=== PATIENT | male | born 1995 | race Caucasian/White ===

== ENCOUNTER 2016-11-25 14:01 | Emergency (ER) | payer OTHER ==
--- NOTE | 2016-11-25 14:27 | ED ---
Upper Extremity HPI - General Stated Complaint: Lump on hands Time Seen by Provider: 11/25/16 14:23 Source: RN notes reviewed, old records reviewed - History of Present Illness Initial Comments: This is a 21, presented to [facility] chief complaint of cyst on bilateral hands and wrist for the past few months. 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 Patient reports that he has some pain with flexion and extension. He reports that he's noticed that they're not soft at this time they're very hard and almost calcified. Patient reports that he wants to be seen to have them removed. Patient reports that he was told that he could hit them with a book and they would disappear. Patient would like to have this done by a professional today. Patient is right-handed. Denies any numbness or tingling on the fingers. Patient denies any recent fever, chills, shortness of breath, chest pain, back pain, abdominal pain, nausea vomiting, numbness or tingling, dysuria or hematuria, constipation or diarrhea, headaches or visual changes, or any other current symptoms - Related Data Previous Rx's Medication Instructions Recorded Naproxen 500 mg PO BID #20 tablet 11/25/16 Allergies Allergy/AdvReac Type Severity Reaction Status Date / Time CITRAMALIC ACID Allergy Redness, Uncoded 11/25/16 14:26 dizzy Review of Systems ROS Statement: Those systems with pertinent positive or pertinent negative responses have been documented in the HPI. ROS Other: All systems not noted in ROS Statement are negative. Past Medical History Past Medical History: No Reported History History of Any Multi-Drug Resistant Organisms: None Reported Past Surgical History: No Surgical Hx Reported Past Psychological History: No Psychological Hx Reported Smoking Status: Current every day smoker Past Alcohol Use History: None Reported Past Drug Use History: None Reported General Exam - General Exam Comments Initial Comments: Is a 21-year-old male. No acute distress. General appearance: alert, in no apparent distress Head exam: Present: atraumatic, normocephalic, normal inspection Eye exam: Present: normal appearance, PERRL, EOMI. Absent: scleral icterus, conjunctival injection, periorbital swelling ENT exam: Present: normal exam, mucous membranes moist Neck exam: Present: normal inspection. Absent: tenderness, meningismus, lymphadenopathy Respiratory exam: Present: normal lung sounds bilaterally. Absent: respiratory distress, wheezes, rales, rhonchi, stridor Cardiovascular Exam: Present: regular rate, normal rhythm, normal heart sounds. Absent: systolic murmur, diastolic murmur, rubs, gallop, clicks GI/Abdominal exam: Present: soft, normal bowel sounds. Absent: distended, tenderness, guarding, rebound, rigid Extremities exam: Present: normal inspection, full ROM, normal capillary refill , other (Patient has evidence of what appears to be ganglion cyst over his bilateral wrists. Both of them are firm and tender to touch.). Absent: tenderness, pedal edema, joint swelling, calf tenderness Back exam: Present: normal inspection Neurological exam: Present: alert, oriented X3, CN II-XII intact Psychiatric exam: Present: normal affect, normal mood Skin exam: Present: warm, dry, intact, normal color. Absent: rash Course Vital Signs 11/25/16 14:31 Temperature 96.7 F L Pulse Rate 73 Respiratory 18 Rate Blood Pressure 127/78 O2 Sat by Pulse 99 Oximetry Medical Decision Making - Medical Decision Making his is a 21, presented to [facility] chief complaint of cyst on bilateral hands and wrist for the past few months. 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 Patient reports that he has some pain with flexion and extension. He reports that he's noticed that they're not soft at this time they're very hard and almost calcified. Patient reports that he wants to be seen to have them removed. Patient reports that he was told that he could hit them with a book and they would disappear. Patient would like to have this done by a professional today. X-rays reviewed and show no evidence of any acute process, the side bilateral carpal boxes. Patient has no tenderness over the anatomical snuffbox. No significant abnormal calcifications of the wrist. Patient will be discharged advised to follow-up with orthopedic follow-up for removal. Patient will be discharged with a temperature medication. Patient agrees treatment plan will comply. Return parameters were discussed. - Radiology Data Radiology results: report reviewed Bilateral carpal box. Correlate has to raise present the site of patient's pain. Otherwise no acute osseous abnormality seen. Disposition Clinical Impression: Bilateral ganglion cysts of wrists Disposition: HOME SELF-CARE Condition: Good Instructions: Ganglion Cysts (ED) Additional Instructions: Apply ice over area, patient advised to take antiinflammatory medication. Patient advised to follow up with orthopedic. Prescriptions: Naproxen 500 mg PO BID #20 tablet Referrals: None,Stated [Primary Care Provider] - 1-2 days Marie Del Cid MD [STAFF PHYSICIAN] - 1-2 days Landon Glez PAC [PHYSICIAN RADIOLOGY RN] - 1-2 days Time of Disposition: 15:12
[2016-11-25 14:35] VITALS: BP 127/78; PULSE 73; RESP 18; TEMP 96.7
--- NOTE | 2016-11-25 15:13 | XR ---
EXAMINATION TYPE: XR hand limited bilateral DATE OF EXAM: 11/25/2016 2:49 PM COMPARISON: NONE HISTORY: 21-year-old male with bilateral pain TECHNIQUE: 2 views each side FINDINGS: No evidence for acute fracture, subluxation, or dislocation. There is some punctate density at the ti p of the right ring finger suspected external artifact. Bilateral carpal boxes are present dorsally, seen on the lateral views. No acute fracture, subluxation, or dislocation. IMPRESSION: Bilateral carpal boss. Correlate as to if these represent the site of patient's pain. Otherwise, no a cute osseous abnormality seen.
== END 2016-11-25 15:35 | disposition home or self-care (01) ==
LOC: EC 14:01
DX: M67.432 Ganglion, left wrist (principal); M67.431 Ganglion, right wrist; F17.200 Nicotine dependence, unspecified, uncomplicated; Z88.8 Allergy status to other drugs, medicaments and biological substances
CPT/HCPCS: 99284

== ENCOUNTER 2017-02-28 10:57 | Emergency (ER) | payer OTHER ==
[2017-02-28 11:03] VITALS: BP 138/70; PULSE 74; RESP 18; TEMP 99.6
--- NOTE | 2017-02-28 11:51 | ED ---
General Adult HPI - General Chief complaint: GI Bleed Stated complaint: rectal bleeding Time Seen by Provider: 02/28/17 11:00 Source: patient, RN notes reviewed Mode of arrival: ambulatory Limitations: no limitations - History of Present Illness Initial comments: He has back pain on both sides of his spine from his neck or down to his lower back. Patient states this has been there for years because he has been moving a lot of things since she's 10 years old. Patient states she's also little blood in the stool but he doesn't really want to be worked up for that because he doesn't want a colonoscopy and he doesn't want any blood work. Patient states he is here because of back pain. Patient states he has had no direct trauma to the back. Patient denies any radicular pain. Patient denies any problems urinating or having urinary retention. Patient states he's had no recent fever chills per patient denies any history of hemorrhoids. Patient denies being lightheaded or dizzy. Patient denies any shortness of breath. - Related Data Previous Rx's Medication Instructions Recorded Cyclobenzaprine [Flexeril] 10 mg PO TID #20 tab 02/28/17 Ibuprofen [Motrin] 600 mg PO Q6HR PRN #20 tab 02/28/17 Allergies Allergy/AdvReac Type Severity Reaction Status Date / Time bee venom protein (honey bee) Allergy Anaphylaxis Verified 02/28/17 11:37 CITRAMALIC ACID Allergy Redness, Uncoded 11/25/16 14:26 dizzy Review of Systems ROS Statement: Those systems with pertinent positive or pertinent negative responses have been documented in the HPI. ROS Other: All systems not noted in ROS Statement are negative. Past Medical History Past Medical History: No Reported History History of Any Multi-Drug Resistant Organisms: None Reported Past Surgical History: No Surgical Hx Reported Past Psychological History: ADD/ADHD, Anxiety, Bipolar, Depression Smoking Status: Current every day smoker Past Alcohol Use History: None Reported Past Drug Use History: Marijuana General Exam - General Exam Comments Initial Comments: GENERAL: Patient is well-developed and well-nourished. Patient is nontoxic and well- hydrated and is in mild distress. ENT: Neck is soft and supple. No significant lymphadenopathy is noted. Oropharynx is clear. Moist mucous membranes. Neck has full range of motion without eliciting any pain. EYES: The sclera were anicteric and conjunctiva were pink and moist. Extraocular movements were intact and pupils were equal round and reactive to light. Eyelids were unremarkable. PULMONARY: Unlabored respirations. Good breath sounds bilaterally. No audible rales rhonchi or wheezing was noted. CARDIOVASCULAR: There is a regular rate and rhythm without any murmurs gallops or rubs. ABDOMEN: Soft and nontender with normal bowel sounds. No palpable organomegaly was noted. There is no palpable pulsatile mass. RECTAL: Rectal exam was normal as no obvious hemorrhoids there was no bleeding he did not let me do an internal rectal exam. SKIN: Skin is clear with no lesions or rashes and otherwise unremarkable. NEUROLOGIC: Patient is alert and oriented x3. Cranial nerves II through XII are grossly intact. Motor and sensory are also intact. Normal speech, volume and content. Symmetrical smile. MUSCULOSKELETAL: Patient has some tenderness along the paraspinous muscles of the back bilaterally straight leg test is negative. Patient has no numbness or weakness of the legs PSYCHIATRIC: Normal psychiatric evaluation. Normal interpersonal interactions appears functionally intact in deals appropriately with others. No signs of depression. No signs of anxiety. N Limitations: no limitations Course Vital Signs 02/28/17 10:59 Temperature 99.6 F Pulse Rate 74 Respiratory 18 Rate Blood Pressure 138/70 O2 Sat by Pulse 98 Oximetry Medical Decision Making - Medical Decision Making Patient did not want a digital rectal exam he refused any blood work and he refused any future colonoscopy. Patient is to follow-up with her primary medical care doctor so that he can refer him to physical therapy for his back and possibly a colonoscopy. Disposition Clinical Impression: Rectal bleeding, Back strain Disposition: HOME SELF-CARE Condition: Good Instructions: Low Back Strain (ED) Prescriptions: Cyclobenzaprine [Flexeril] 10 mg PO TID #20 tab Ibuprofen [Motrin] 600 mg PO Q6HR PRN #20 tab PRN Reason: For pain Referrals: None,Stated [Primary Care Provider] - 1-2 days
== END 2017-02-28 11:59 | disposition home or self-care (01) ==
LOC: EC 10:57
DX: S39.012A Strain of muscle, fascia and tendon of lower back, initial encounter (principal); K62.5 Hemorrhage of anus and rectum; F17.200 Nicotine dependence, unspecified, uncomplicated; Z91.030 Bee allergy status; Z91.048 Other nonmedicinal substance allergy status; X58.XXXA Exposure to other specified factors, initial encounter
CPT/HCPCS: 99284

== ENCOUNTER 2017-03-09 22:06 | Emergency (ER) | payer OTHER ==
[2017-03-09 22:15] VITALS: RESP 18
[2017-03-09 22:34] VITALS: TEMP 98.7
[2017-03-09] MEDS ORDERED: KETOROLAC 30 MG/ML 1 ML VIAL IVP ONE (22:53)
[2017-03-09] MEDS ORDERED: SODIUM CHLORIDE 0.9% 1,000 ML IV ONE (22:53)
[2017-03-09 23:32] LABS: ALT 39 U/L (21-72); AST 17 U/L (17-59); Alkaline Phosphatase 54 U/L (38-126); Anion Gap 7 mmol/L; Blood Urea Nitrogen 19 mg/dL (9-20); Calcium 9.6 mg/dL (8.4-10.2); Carbon Dioxide 30 mmol/L (22-30); Chloride 104 mmol/L (98-107); Glucose 101 mg/dL (74-99); Non-African American GFR(MDRD) >60 (>60 ml/min/1.73 sqM); Potassium 4.8 mmol/L (3.5-5.1); Sodium 141 mmol/L (137-145); Total Bilirubin 0.2 mg/dL (0.2-1.3); Total Protein 6.4 g/dL (6.3-8.2)
--- NOTE | 2017-03-09 23:34 | ED ---
General Adult HPI - General Chief complaint: Abdominal Pain Stated complaint: vomiting/congestion Time Seen by Provider: 03/09/17 22:34 Source: patient Mode of arrival: ambulatory Limitations: no limitations - History of Present Illness Initial comments: Patient is a 22-year-old male who presents to the emergency department for evaluation of generalized fatigue. Patient reports that for the past 3 days he has been experiencing runny nose and congestion, headache and pressure in his sinuses. In addition is now experiencing pressure and pain in his ears, nausea and had multiple episodes of nonbloody nonbilious emesis throughout the day today. He reports that for the past 2 days she's been able tolerate the illness but today he was unable to go to work so he decided to come to the emergency department for further evaluation. Patient denies fevers but reports subjective chills. He reports that he is always sweaty and this is unchanged recently. He denies any ringing in his ears are vision changes. He describes the headache as pressure-like surrounding his eyes and his sinuses. The patient does report a history of recurrent ear infections which began a couple of years ago. He has not been treated for an ear infection in some time. Patient denies any cough, S pain or shortness of breath. He describes his abdominal pain is a generalized cramping worse in the suprapubic region. He reports he's been drinking plenty of fluids and his urine is not darker concentrated, he denies any urinary frequency, hesitancy or dysuria. He reports normal bowel movements. He denies any rashes numbness or tingling to the extremities. - Related Data Previous Rx's Medication Instructions Recorded Amoxicillin/Potassium Clav 1 tab PO Q12HR #14 tab 03/10/17 [Augmentin 875-125 Tablet] Allergies Allergy/AdvReac Type Severity Reaction Status Date / Time bee venom protein (honey bee) Allergy Anaphylaxis Verified 03/09/17 22:49 CITRAMALIC ACID Allergy Redness, Uncoded 03/09/17 22:10 dizzy Review of Systems ROS Statement: Those systems with pertinent positive or pertinent negative responses have been documented in the HPI. ROS Other: All systems not noted in ROS Statement are negative. Constitutional: Reports: chills Eyes: Reports: eye pain. Denies: vision change ENT: Reports: ear pain, congestion. Denies: throat pain, epistaxis Respiratory: Denies: cough, dyspnea Cardiovascular: Denies: chest pain, palpitations Endocrine: Reports: fatigue Gastrointestinal: Reports: abdominal pain, nausea, vomiting Genitourinary: Denies: urgency, dysuria, frequency, hematuria Musculoskeletal: Denies: back pain Skin: Denies: rash Neurological: Reports: headache Psychiatric: Denies: anxiety Hematological/Lymphatic: Denies: easy bleeding, easy bruising Past Medical History Past Medical History: No Reported History History of Any Multi-Drug Resistant Organisms: None Reported Past Surgical History: No Surgical Hx Reported Additional Past Surgical History / Comment(s): wisdom teeth extraction Past Psychological History: ADD/ADHD, Anxiety, Bipolar, Depression Smoking Status: Current every day smoker Past Alcohol Use History: None Reported Past Drug Use History: Marijuana General Exam Limitations: no limitations General appearance: alert, in no apparent distress, other (Patient was resting comfortably in the ER bed when I entered the room) Head exam: Present: atraumatic, normocephalic, normal inspection Eye exam: Present: normal appearance, PERRL, EOMI. Absent: scleral icterus, conjunctival injection, periorbital swelling, periorbital tenderness ENT exam: Present: normal oropharynx, mucous membranes moist Expanded TM/Canal exam: Erythema: Right TM, Left TM, Bulging: Right TM, Left TM, Effusion : Right TM, Left TM Mouth exam: Present: normal external inspection Teeth exam: Present: dental caries Throat exam: tonsillar erythema. negative: tonsillomegaly, R peritonsillar mass , L peritonsillar mass Neck exam: Present: normal inspection, full ROM. Absent: lymphadenopathy Respiratory exam: Present: normal lung sounds bilaterally. Absent: respiratory distress, wheezes, rales, rhonchi, stridor Cardiovascular Exam: Present: regular rate, normal rhythm, normal heart sounds. Absent: systolic murmur, diastolic murmur, rubs, gallop, clicks GI/Abdominal exam: Present: soft, normal bowel sounds. Absent: distended, tenderness, guarding, rebound, rigid Rectal exam: Present: deferred Extremities exam: Present: normal inspection, full ROM, normal capillary refill. Absent: tenderness, pedal edema, joint swelling, calf tenderness Back exam: Present: normal inspection Neurological exam: Present: alert, oriented X3, CN II-XII intact Psychiatric exam: Present: normal affect, normal mood Skin exam: Present: warm, dry, intact, normal color. Absent: rash Course Vital Signs 03/09/17 03/09/17 03/10/17 22:10 22:33 00:04 Temperature 98.9 F 98.7 F Pulse Rate 93 89 Respiratory 18 18 Rate Blood Pressure 135/73 129/72 O2 Sat by Pulse 96 97 Oximetry - Reevaluation(s) Reevaluation #1: Patient reevaluated, sitting comfortably in the ER crescencio playing video games on his cell phone. Patient in no acute distress. 03/10/17 00:30 Medical Decision Making - Medical Decision Making Patient was seen and evaluated, history was obtained from the patient Physical exam is concerning for bilateral otitis media as well as tenderness to palpation of the bilateral maxillary sinuses - I suspect that the patient has a sinus infection Basic labs, IV fluids and Toradol was ordered Labs with mild leukocytosis. No other significant acute abnormalities Labs were discussed with the patient and at bedside. Advised that he has mild leukocytosis consistent with having an early infection. Advised I will prescribe him Augmentin for sinus infection and ear infections. Advised that he should choose an [id number] nasal spray and congestion medication for treatment of congestion to aid in resolution of sinus infection. stated that she would go to the drug store and she is medications. All questions pertaining to care were answered the best of my ability and the patient was discharged home in stable condition. - Lab Data Result diagrams: 03/09/17 23:00 03/09/17 23:00 Lab Results 03/09/17 03/09/17 03/10/17 Range/Units 23:00 23:00 00:02 WBC 10.7 H (3.8-10.6) k/uL RBC 4.88 (4.30-5.90) m/uL Hgb 14.8 (13.0-17.5) gm/dL Hct 44.5 (39.0-53.0) % MCV 91.2 (80.0-100.0) fL MCH 30.3 (25.0-35.0) pg MCHC 33.2 (31.0-37.0) g/dL RDW 13.5 (11.5-15.5) % Plt Count 271 (150-450) k/uL Neutrophils % 67 % Lymphocytes % 24 % Monocytes % 6 % Eosinophils % 2 % Basophils % 1 % Neutrophils # 7.1 (1.3-7.7) k/uL Lymphocytes # 2.6 (1.0-4.8) k/uL Monocytes # 0.6 (0-1.0) k/uL Eosinophils # 0.2 (0-0.7) k/uL Basophils # 0.1 (0-0.2) k/uL Sodium 141 (137-145) mmol/L Potassium 4.8 (3.5-5.1) mmol/L Chloride 104 (98-107) mmol/L Carbon Dioxide 30 (22-30) mmol/L Anion Gap 7 mmol/L BUN 19 (9-20) mg/dL Creatinine 1.00 (0.66-1.25) mg/dL Est GFR (MDRD) Af Amer >60 (>60 ml/min/1.73 sqM) Est GFR (MDRD) Non-Af >60 (>60 ml/min/1.73 sqM) Glucose 101 H (74-99) mg/dL Calcium 9.6 (8.4-10.2) mg/dL Total Bilirubin 0.2 (0.2-1.3) mg/dL AST 17 (17-59) U/L ALT 39 (21-72) U/L Alkaline Phosphatase 54 (38-126) U/L Total Protein 6.4 (6.3-8.2) g/dL Albumin 4.1 (3.5-5.0) g/dL Urine Color Yellow Urine Appearance Clear (Clear) Urine pH 5.5 (5.0-8.0) Ur Specific [place] 1.027 (1.001-1.035) Urine Protein Negative (Negative) Urine Glucose (UA) Negative (Negative) Urine Ketones Negative (Negative) Urine Blood Negative (Negative) Urine Nitrite Negative (Negative) Urine Bilirubin Negative (Negative) Urine Urobilinogen 2.0 (<2.0) mg/dL Ur Leukocyte Esterase Negative (Negative) Disposition Clinical Impression: Otitis media, Sinus infection Disposition: HOME SELF-CARE Condition: Good Prescriptions: Amoxicillin/Potassium Clav [Augmentin 875-125 Tablet] 1 tab PO Q12HR #14 tab Referrals: None,Stated [Primary Care Provider] - 1-2 days
[2017-03-10 00:05] VITALS: BP 129/72; PULSE 89
[2017-03-10 00:22] LABS: Appearance,Urine Clear (Clear); Bilirubin,Urine Negative (Negative); Glucose,Urine (UA) Negative (Negative); Ketones,Urine Negative (Negative); Leukocyte Esterase,Urine Negative (Negative); Nitrite,Urine Negative (Negative); PH, Urine 5.5 (5.0-8.0); Protein,Urine Negative (Negative); Specific Gravity,Urine 1.027 (1.001-1.035); UA Billing (MACRO vs. MICRO) CHEM
[2017-03-10 00:26] LABS: Basophils # (A) 0.1 k/uL (0-0.2); Basophils % (A) 1 %; CH 31.7; CHCM 34.9; Eosinophils # (A) 0.2 k/uL (0-0.7); Eosinophils % (A) 2 %; HCT 44.5 % (39.0-53.0); HDW 2.33; HGB 14.8 gm/dL (13.0-17.5); Luc # (Auto) 0.15; Luc % (Auto) 1; Lymphocytes # (A) 2.6 k/uL (1.0-4.8); Lymphocytes % (A) 24 %; MCH 30.3 pg (25.0-35.0); MCHC 33.2 g/dL (31.0-37.0); MCV 91.2 fL (80.0-100.0); Mean Platelet Volume 6.9; Monocytes # (A) 0.6 k/uL (0-1.0); Monocytes % (A) 6 %; Neutrophils # (A) 7.1 k/uL (1.3-7.7); Neutrophils % (A) 67 %; RBC 4.88 m/uL (4.30-5.90); RDW 13.5 % (11.5-15.5); WBC 10.7 k/uL (3.8-10.6); WBC (Perox) 10.21
[2017-03-10] MEDS ORDERED: AMOXIC-POT CLAV 875MG STARTER 2 EACH TABLET PO STA (00:30)
== END 2017-03-10 00:42 | disposition home or self-care (01) ==
LOC: EC 22:06
DX: H66.93 Otitis media, unspecified, bilateral (principal); J32.0 Chronic maxillary sinusitis; R11.10 Vomiting, unspecified; D72.829 Elevated white blood cell count, unspecified; F17.200 Nicotine dependence, unspecified, uncomplicated; Z91.030 Bee allergy status; Z91.09 Other allergy status, other than to drugs and biological substances
CPT/HCPCS: 36415; 80053; 85025; 81003; 99284; 96374; 96361; J1885

== ENCOUNTER 2017-03-19 03:15 | Emergency (ER) | payer OTHER ==
--- NOTE | 2017-03-19 03:41 | ED ---
General Adult HPI - General Chief complaint: Psychiatric Symptoms Stated complaint: Mental Health Time Seen by Provider: 03/19/17 03:19 Source: patient, EMS, RN notes reviewed, old records reviewed Mode of arrival: ambulatory Limitations: no limitations - History of Present Illness Initial comments: This is a 22-year-old male to the ER for evaluation. Patient doesn't by EMS for evaluation of suicide attempt. Patient told his to kill him. He wrapped a cord on his neck and told multiple - Related Data Previous Rx's Medication Instructions Recorded Amoxicillin/Potassium Clav 1 tab PO Q12HR #14 tab 03/10/17 [Augmentin 875-125 Tablet] Allergies Allergy/AdvReac Type Severity Reaction Status Date / Time bee venom protein (honey bee) Allergy Anaphylaxis Verified 03/09/17 22:49 CITRAMALIC ACID Allergy Redness, Uncoded 03/09/17 22:10 dizzy Review of Systems ROS Statement: Those systems with pertinent positive or pertinent negative responses have been documented in the HPI. ROS Other: All systems not noted in ROS Statement are negative. Past Medical History Past Medical History: No Reported History History of Any Multi-Drug Resistant Organisms: None Reported Past Surgical History: No Surgical Hx Reported Additional Past Surgical History / Comment(s): wisdom teeth extraction Past Psychological History: ADD/ADHD, Anxiety, Bipolar, Depression Smoking Status: Current every day smoker Past Alcohol Use History: Occasional Past Drug Use History: Marijuana General Exam Limitations: no limitations General appearance: alert, in no apparent distress Head exam: Present: atraumatic, normocephalic, normal inspection Eye exam: Present: normal appearance, PERRL, EOMI. Absent: scleral icterus, conjunctival injection, periorbital swelling ENT exam: Present: normal exam, mucous membranes moist Neck exam: Present: normal inspection. Absent: tenderness, meningismus, lymphadenopathy Respiratory exam: Present: normal lung sounds bilaterally. Absent: respiratory distress, wheezes, rales, rhonchi, stridor Cardiovascular Exam: Present: regular rate, normal rhythm, normal heart sounds. Absent: systolic murmur, diastolic murmur, rubs, gallop, clicks GI/Abdominal exam: Present: soft, normal bowel sounds. Absent: distended, tenderness, guarding, rebound, rigid Extremities exam: Present: normal inspection, full ROM, normal capillary refill. Absent: tenderness, pedal edema, joint swelling, calf tenderness Back exam: Present: normal inspection Neurological exam: Present: alert, oriented X3, CN II-XII intact Psychiatric exam: Present: normal affect, normal mood Skin exam: Present: warm, dry, intact, normal color. Absent: rash Course Vital Signs 03/19/17 03:32 Temperature 99.4 F Pulse Rate 101 H Respiratory 20 Rate Blood Pressure 148/86 O2 Sat by Pulse 99 Oximetry Medical Decision Making - Medical Decision Making 22 male seen and evaluated by psychiatry, patient is not actively suicidal or homicidal. Patient has safe place to go with . Patient can be discharged home Disposition Clinical Impression: Depression Disposition: HOME SELF-CARE Condition: Good Instructions: Depression (ED) Referrals: None,Stated [Primary Care Provider] - 1-2 days
[2017-03-19 06:01] VITALS: BP 131/76; PULSE 75; RESP 18; TEMP 97.5
== END 2017-03-19 06:00 | disposition home or self-care (01) ==
LOC: EC 03:15
DX: F32.9 Major depressive disorder, single episode, unspecified (principal); F41.9 Anxiety disorder, unspecified; F17.200 Nicotine dependence, unspecified, uncomplicated; Z88.8 Allergy status to other drugs, medicaments and biological substances; Z91.030 Bee allergy status
CPT/HCPCS: 82075; 99284

== ENCOUNTER 2017-04-17 12:22 | Emergency (ER) | payer OTHER ==
--- NOTE | 2017-04-17 12:57 | ED ---
General Adult HPI - General Chief complaint: Urogenital Stated complaint: Blood In Urine Time Seen by Provider: 04/17/17 12:49 Source: patient, RN notes reviewed, old records reviewed Mode of arrival: ambulatory Limitations: no limitations - History of Present Illness Initial comments: This is a 22-year-old male to the ER for evaluation of bowel pain, acute abdominal pain, dysuria. Patient denies any extraneous sexual activity. Woke up this morning again had blood in his urine. But no other complaints, no fevers. No nausea vomiting or diarrhea. - Related Data Previous Rx's Medication Instructions Recorded Doxycycline Monohydrate [Monodox] 100 mg PO Q12HR #28 cap 04/17/17 Allergies Allergy/AdvReac Type Severity Reaction Status Date / Time bee venom protein (honey bee) Allergy Anaphylaxis Verified 04/17/17 12:59 CITRAMALIC ACID Allergy Redness, Uncoded 04/17/17 12:41 dizzy Review of Systems ROS Statement: Those systems with pertinent positive or pertinent negative responses have been documented in the HPI. ROS Other: All systems not noted in ROS Statement are negative. Past Medical History Past Medical History: No Reported History History of Any Multi-Drug Resistant Organisms: None Reported Past Surgical History: No Surgical Hx Reported Additional Past Surgical History / Comment(s): wisdom teeth extraction, facial Past Psychological History: ADD/ADHD, Anxiety, Bipolar, Depression Smoking Status: Current every day smoker Past Alcohol Use History: None Reported Past Drug Use History: Marijuana General Exam Limitations: no limitations General appearance: alert, in no apparent distress Head exam: Present: atraumatic, normocephalic, normal inspection Eye exam: Present: normal appearance, PERRL, EOMI. Absent: scleral icterus, conjunctival injection, periorbital swelling ENT exam: Present: normal exam, mucous membranes moist Neck exam: Present: normal inspection. Absent: tenderness, meningismus, lymphadenopathy Respiratory exam: Present: normal lung sounds bilaterally. Absent: respiratory distress, wheezes, rales, rhonchi, stridor Cardiovascular Exam: Present: regular rate, normal rhythm, normal heart sounds. Absent: systolic murmur, diastolic murmur, rubs, gallop, clicks GI/Abdominal exam: Present: soft, normal bowel sounds. Absent: distended, tenderness, guarding, rebound, rigid Extremities exam: Present: normal inspection, full ROM, normal capillary refill. Absent: tenderness, pedal edema, joint swelling, calf tenderness Back exam: Present: normal inspection Neurological exam: Present: alert, oriented X3, CN II-XII intact Psychiatric exam: Present: normal affect, normal mood Skin exam: Present: warm, dry, intact, normal color. Absent: rash Course Vital Signs 04/17/17 12:36 Temperature 99.1 F Pulse Rate 76 Respiratory 18 Rate Blood Pressure 123/65 O2 Sat by Pulse 99 Oximetry - Reevaluation(s) Reevaluation #1: 04/17/17 14:42 patient is in no acute distress Medical Decision Making - Medical Decision Making 20 formality with hematuria. Patient has positive blood in the stool, CT negative, patient will be discharged and treated for antibiotics, await urine culture - Lab Data Lab Results 04/17/17 Range/Units 13:07 Urine Color Yellow Urine Appearance Clear (Clear) Urine pH 8.0 (5.0-8.0) Ur Specific [place] 1.013 (1.001-1.035) Urine Protein Negative (Negative) Urine Glucose (UA) Negative (Negative) Urine Ketones Negative (Negative) Urine Blood Moderate H (Negative) Urine Nitrite Negative (Negative) Urine Bilirubin Negative (Negative) Urine Urobilinogen <2.0 (<2.0) mg/dL Ur Leukocyte Esterase Negative (Negative) Urine RBC 87 H (0-5) /hpf Urine WBC 1 (0-5) /hpf Urine Mucus Rare H (None) /hpf - Radiology Data Radiology results: report reviewed (CT abdomen and pelvis, US SCROTUM NEGATIVE) , image reviewed Disposition Clinical Impression: Urinary tract infection Disposition: HOME SELF-CARE Condition: Good Instructions: Urinary Tract Infection in Men (ED) Prescriptions: Doxycycline Monohydrate [Monodox] 100 mg PO Q12HR #28 cap Referrals: Ruben Cisneros MD [Primary Care Provider] - 1-2 days
[2017-04-17 13:29] LABS: Appearance,Urine Clear (Clear); Bilirubin,Urine Negative (Negative); Glucose,Urine (UA) Negative (Negative); Ketones,Urine Negative (Negative); Leukocyte Esterase,Urine Negative (Negative); Mucus,Urine Rare /hpf; Nitrite,Urine Negative (Negative); Particle Count 2384; Protein,Urine Negative (Negative); RBC,Urine 87 /hpf (0-5); Specific Gravity,Urine 1.013 (1.001-1.035); UA Billing (MACRO vs. MICRO) MICRO; Urobilinogen,Urine <2.0 mg/dL (<2.0); WBC,Urine 1 /hpf (0-5)
--- NOTE | 2017-04-17 13:49 | CT ---
EXAMINATION TYPE: CT abdomen pelvis wo con DATE OF EXAM: 04/17/2017 COMPARISON: NONE HISTORY: Gross hematuria CT DLP: 982 mGycm Automated exposure control for dose reduction was used. TECHNIQUE: Helical acquisition of images was performed from the lung bases through the pelvis. FINDINGS: LUNG BASES: No significant abnormality is appreciated. No pleural effusion. LIVER/GB: No significant abnormality is appreciated. No evidence of cholelithiasis. No intrahepatic b iliary ductal dilatation. PANCREAS: Unenhanced morphology is unremarkable with no ductal dilatation. SPLEEN: No significant abnormality is seen. ADRENALS: Adrenal glands are symmetric without discrete nodule.. KIDNEYS: No radiopaque calculi are present. No evidence of hydronephrosis. No perinephric fat strandi ng. FREE AIR: No free air is visualized ADENOPATHY: Few enlarged left periaortic lymph nodes are seen with the largest lymph node containing a fatty eric on series 3 image 63 as well as on series 5 image 45 measuring 1.4 cm in short axis. Th anastasia are best depicted on the coronal sequence images 41 through 46. REPRODUCTIVE ORGANS: No significant abnormality is seen URINARY BLADDER: Urinary bladder esteban are circumferentially thickened which partially relates to inc omplete distention but additionally may relate to cystitis. Correlate with urinalysis. OSSEOUS STRUCTURES: No significant abnormality is seen. BOWEL: No significant abnormality is seen. IMPRESSION: 1. Circumferential urinary bladder wall thickening, partially related to incomplete distention, altho ugh correlation with urinalysis for cystitis is recommended. 2. Nonspecific periaortic adenopathy. This could be benign and reactive, however scrotal ultrasound i s recommended on a nonemergent basis to ensure no underlying mass and short-term follow-up CT is also recommended to exclude neoplastic etiologies such as early lymphoma. Correlate with CBC.
[2017-04-17] MEDS ORDERED: cefTRIAXone 250 MG VIAL IM STA (14:40)
--- NOTE | 2017-04-17 14:51 | US ---
EXAMINATION TYPE: US scrotum with doppler. Grayscale and color Doppler Duplex imaging performed of t he scrotum. DATE OF EXAM: 04/17/2017 COMPARISON: CT abdomen pelvis dated 04/17/2017 CLINICAL HISTORY: Pain. EXAM MEASUREMENTS: TESTICLES: Right Testicle: 5.5 x 2.4 x 3.2 cm Left Testicle: 5.7 x 2.2 x 3.0 cm EPIDIDYMIS HEAD: Right Epididymis: 1.5 x 1.1 cm Left Epididymis: 1.2 x 0.8 cm Doppler performed to assess for testicular vascularity; good bilateral color flow and waveforms are s een. There is no evidence of testicular torsion. Presence of hydroceles: none Presence of varicoceles: none rt epi head cyst measures 1.1 x 0.7 cm, otherwise normal exam. IMPRESSION: No intratesticular or extratesticular scrotal mass. Benign right epididymal cyst.
[2017-04-17 15:18] VITALS: BP 128/80; PULSE 70; RESP 20; TEMP 98
== END 2017-04-17 15:18 | disposition home or self-care (01) ==
LOC: EC 12:22
DX: N39.0 Urinary tract infection, site not specified (principal); R10.9 Unspecified abdominal pain; F17.200 Nicotine dependence, unspecified, uncomplicated; Z91.030 Bee allergy status; Z91.09 Other allergy status, other than to drugs and biological substances
CPT/HCPCS: 99284 ×2; 96372 ×2; 81001; 87491; 87591; 87086; 93975; 76870; 74176; J0696

== ENCOUNTER 2020-12-05 09:56 | Emergency (ER) | payer OTHER ==
[2020-12-05] MEDS ORDERED: SODIUM CHLORIDE 0.9% 1,000 ML IV ONE (10:08)
[2020-12-05] MEDS ORDERED: levETIRAcetam IV 1,000 MG in SALINE 1 100ML.BAG IVPB STA (10:09)
[2020-12-05] MEDS ORDERED: ONDANSETRON 4 MG/2 ML VIAL IM STA (10:30)
--- NOTE | 2020-12-05 10:38 | ED ---
General Adult HPI - General Chief complaint: Seizure Stated complaint: seizure Time Seen by Provider: 12/05/20 09:56 Source: patient, police, EMS, RN notes reviewed, old records reviewed Mode of arrival: EMS Limitations: no limitations - History of Present Illness Initial comments: This is a 25-year-old male who presents emergency department stating that he has a history of seizures she supposed be on Keppra but does not take it because he states he can't afford it. Patient believes he had a seizure today according to the paramedics the patient was combative and alert and oriented 1 only and had to be brought in after they gave some Versed and had the police handcuffed him. Patient currently is alert and oriented 4 and is extremely nauseated this time. Patient states he is not having any pain but he feels like it's in the vomit at any moment. Patient denies headache patient denies numbness weakness. Patient denies any drug use. Patient denies any trauma. Patient denies any recent fever chills or cough - Related Data Previous Rx's Medication Instructions Recorded Doxycycline Monohydrate [Monodox] 100 mg PO Q12HR #28 cap 04/17/17 levETIRAcetam [Keppra] 500 mg PO Q12HR #30 tab 12/05/20 Allergies Allergy/AdvReac Type Severity Reaction Status Date / Time bee venom protein (honey bee) Allergy Anaphylaxis Verified 12/05/20 10:08 CITRAMALIC ACID Allergy Redness, Uncoded 12/05/20 10:08 dizzy Review of Systems ROS Statement: Those systems with pertinent positive or pertinent negative responses have been documented in the HPI. ROS Other: All systems not noted in ROS Statement are negative. Past Medical History Past Medical History: Seizure Disorder History of Any Multi-Drug Resistant Organisms: None Reported Past Surgical History: No Surgical Hx Reported Additional Past Surgical History / Comment(s): wisdom teeth extraction, facial Past Psychological History: ADD/ADHD, Anxiety, Bipolar, Depression Smoking Status: Current some day smoker Past Alcohol Use History: None Reported Past Drug Use History: Marijuana General Exam - General Exam Comments Initial Comments: GENERAL: Patient is well-developed and well-nourished. Patient is nontoxic and well- hydrated and is in mild distress. ENT: Neck is soft and supple. No significant lymphadenopathy is noted. Oropharynx is clear. Moist mucous membranes. Neck has full range of motion without eliciting any pain. EYES: The sclera were anicteric and conjunctiva were pink and moist. Extraocular movements were intact and pupils were equal round and reactive to light. Eyelids were unremarkable. PULMONARY: Unlabored respirations. Good breath sounds bilaterally. No audible rales rhonchi or wheezing was noted. CARDIOVASCULAR: There is a regular rate and rhythm without any murmurs gallops or rubs. ABDOMEN: Soft and nontender with normal bowel sounds. SKIN: Skin is clear with no lesions or rashes and otherwise unremarkable. NEUROLOGIC: Patient is alert and oriented x3. Cranial nerves II through XII are grossly intact. Motor and sensory are also intact. Normal speech, volume and content. Symmetrical smile. MUSCULOSKELETAL: Normal extremities with adequate strength and full range of motion. No lower e xtremity swelling or edema. No calf tenderness. LYMPHATICS: No significant lymphadenopathy is noted PSYCHIATRIC: Normal psychiatric evaluation. Limitations: no limitations Course Vital Signs 12/05/20 12/05/20 10:02 12:00 Temperature 98.0 F Pulse Rate 98 85 Respiratory 18 18 Rate Blood Pressure 142/77 135/88 O2 Sat by Pulse 99 99 Oximetry Medical Decision Making - Medical Decision Making Patient received heparin the emergency department be sent home with a prescription. Patient feels at his baseline currently like to be discharged home. - Lab Data Result diagrams: 12/05/20 11:03 12/05/20 11:03 Lab Results 12/05/20 12/05/20 12/05/20 Range/Units 11:03 11:03 11:03 WBC 10.4 (3.8-10.6) k/uL RBC 5.22 (4.30-5.90) m/uL Hgb 15.0 (13.0-17.5) gm/dL Hct 45.6 (39.0-53.0) % MCV 87.3 (80.0-100.0) fL MCH 28.6 (25.0-35.0) pg MCHC 32.8 (31.0-37.0) g/dL RDW 13.3 (11.5-15.5) % Plt Count 264 (150-450) k/uL MPV 6.6 Neutrophils % 85 % Lymphocytes % 11 % Monocytes % 3 % Eosinophils % 0 % Basophils % 0 % Neutrophils # 8.8 H (1.3-7.7) k/uL Lymphocytes # 1.2 (1.0-4.8) k/uL Monocytes # 0.3 (0-1.0) k/uL Eosinophils # 0.0 (0-0.7) k/uL Basophils # 0.0 (0-0.2) k/uL Sodium 140 (137-145) mmol/L Potassium 4.5 (3.5-5.1) mmol/L Chloride 110 H (98-107) mmol/L Carbon Dioxide 24 (22-30) mmol/L Anion Gap 6 mmol/L BUN 19 (9-20) mg/dL Creatinine 0.91 (0.66-1.25) mg/dL Est GFR (CKD-EPI)AfAm >90 (>60 ml/min/1.73 sqM) Est GFR (CKD-EPI)NonAf >90 (>60 ml/min/1.73 sqM) Glucose 117 H (74-99) mg/dL Calcium 9.1 (8.4-10.2) mg/dL Total Bilirubin 0.4 (0.2-1.3) mg/dL AST 35 (17-59) U/L ALT 48 (4-49) U/L Alkaline Phosphatase 61 (38-126) U/L Total Protein 6.7 (6.3-8.2) g/dL Albumin 4.6 (3.5-5.0) g/dL Urine Opiates Screen Not Detected (NotDetected) Ur Oxycodone Screen Not Detected (NotDetected) Urine Methadone Screen Not Detected (NotDetected) Ur Propoxyphene Screen Not Detected (NotDetected) Ur Barbiturates Screen Not Detected (NotDetected) U Tricyclic Antidepress Not Detected (NotDetected) Ur Phencyclidine Scrn Not Detected (NotDetected) Ur Amphetamines Screen Not Detected (NotDetected) U Methamphetamines Scrn Not Detected (NotDetected) U Benzodiazepines Scrn Not Detected (NotDetected) Urine Cocaine Screen Not Detected (NotDetected) U Marijuana (THC) Screen Detected H (NotDetected) Disposition Clinical Impression: Generalized seizure Disposition: HOME SELF-CARE Instructions (If sedation given, give patient instructions): Seizure/Epilepsy Discharge Instructions & Follow-Up Prescriptions: levETIRAcetam [Keppra] 500 mg PO Q12HR #30 tab Is patient prescribed a controlled substance at d/c from ED?: No Referrals: Ruben Cisneros MD [Primary Care Provider] - 1-2 days Time of Disposition: 12:09
[2020-12-05 11:00] VITALS: RESP 18; TEMP 98
[2020-12-05 11:26] LABS: Basophils % (A) 0 %; Eosinophils % (A) 0 %; HCT 45.6 % (39.0-53.0); Lymphocytes # (A) 1.2 k/uL (1.0-4.8); Lymphocytes % (A) 11 %; MCH 28.6 pg (25.0-35.0); MCHC 32.8 g/dL (31.0-37.0); MCV 87.3 fL (80.0-100.0); Mean Platelet Volume 6.6; Monocytes # (A) 0.3 k/uL (0-1.0); Monocytes % (A) 3 %; Neutrophils # (A) 8.8 k/uL (1.3-7.7); Neutrophils % (A) 85 %; Platelet Count 264 k/uL (150-450); RBC 5.22 m/uL (4.30-5.90); RDW 13.3 % (11.5-15.5); WBC 10.4 k/uL (3.8-10.6)
[2020-12-05 11:31] LABS: Potassium 4.5 mmol/L (3.5-5.1)
[2020-12-05 11:34] LABS: ALT 48 U/L (4-49); AST 35 U/L (17-59); African American GFR (CKD) >90 (>60 ml/min/1.73 sqM); Albumin 4.6 g/dL (3.5-5.0); Alkaline Phosphatase 61 U/L (38-126); Anion Gap 6 mmol/L; Blood Urea Nitrogen 19 mg/dL (9-20); Calcium 9.1 mg/dL (8.4-10.2); Carbon Dioxide 24 mmol/L (22-30); Chloride 110 mmol/L (98-107); Glucose 117 mg/dL (74-99); Non-African American GFR(CKD) >90 (>60 ml/min/1.73 sqM); Sodium 140 mmol/L (137-145); Total Bilirubin 0.4 mg/dL (0.2-1.3); Total Protein 6.7 g/dL (6.3-8.2)
[2020-12-05 12:00] LABS: Amphetamine Screen,Urine Not Detected (NotDetected); Barbiturate Screen,Urine Not Detected (NotDetected); Benzodiazepines Screen,Urine Not Detected (NotDetected); Cocaine Screen,Urine Not Detected (NotDetected); Methadone Screen, Urine Not Detected (NotDetected); Opiate Screen,Urine Not Detected (NotDetected); Oxycodone Screen, Urine Not Detected (NotDetected); Phencyclidine Screen,Urine Not Detected (NotDetected); Tricyclic Antidepressant,Urine Not Detected (NotDetected); Urn Cannabinoid Scrn Detected (NotDetected)
[2020-12-05 12:01] VITALS: BP 135/88; PULSE 85
== END 2020-12-05 12:47 | disposition home or self-care (01) ==
LOC: EC 09:56
DX: G40.909 Epilepsy, unspecified, not intractable, without status epilepticus (principal); F17.200 Nicotine dependence, unspecified, uncomplicated; Z91.030 Bee allergy status; Z88.8 Allergy status to other drugs, medicaments and biological substances
CPT/HCPCS: 99284; 96374; 96372; 96361; 36415; 80053; 85025; 80306; J2405; J1953

== ENCOUNTER 2021-04-29 17:24 | Emergency (ER) | payer OTHER ==
[2021-04-29 18:09] VITALS: BP 139/90; PULSE 84; RESP 20; TEMP 98
--- NOTE | 2021-04-29 18:29 | ED ---
General Adult HPI - General Chief complaint: Psychiatric Symptoms Stated complaint: Mental Health Time Seen by Provider: 04/29/21 17:48 Source: patient, RN notes reviewed, old records reviewed Mode of arrival: ambulatory Limitations: no limitations - History of Present Illness Initial comments: 18-year-old male brought in under court order petitioned. Patient states that he had a conversation with his grandmother and he indicated some suicidal thoughts that he states was in the past. He denies current suicidal thoughts or suicidal plan. The petitioned does indicate that the patient has been evicted from his living situation. He's had some issues with seizure over the past one year and has just recently obtained medical insurance. - Related Data Home Medications Medication Instructions Recorded Confirmed No Known Home Medications 04/29/21 04/29/21 Allergies Allergy/AdvReac Type Severity Reaction Status Date / Time bee venom protein (honey bee) Allergy Anaphylaxis Verified 04/29/21 18:18 CITRAMALIC ACID Allergy Redness, Uncoded 04/29/21 17:37 dizzy Review of Systems ROS Statement: Those systems with pertinent positive or pertinent negative responses have been documented in the HPI. ROS Other: All systems not noted in ROS Statement are negative. Past Medical History Past Medical History: Seizure Disorder History of Any Multi-Drug Resistant Organisms: None Reported Past Surgical History: No Surgical Hx Reported Additional Past Surgical History / Comment(s): wisdom teeth extraction, facial Past Psychological History: ADD/ADHD, Anxiety, Bipolar, Depression Smoking Status: Current some day smoker Past Alcohol Use History: None Reported Past Drug Use History: Marijuana General Exam Limitations: no limitations General appearance: alert, in no apparent distress Head exam: Present: atraumatic, normocephalic Eye exam: Present: normal appearance, PERRL ENT exam: Present: normal exam Neck exam: Present: normal inspection. Absent: tenderness, meningismus Respiratory exam: Present: normal lung sounds bilaterally. Absent: respiratory distress, wheezes Cardiovascular Exam: Present: regular rate, normal rhythm GI/Abdominal exam: Present: soft. Absent: distended, tenderness, guarding Extremities exam: Present: normal inspection, normal capillary refill Neurological exam: Present: alert, oriented X3, CN II-XII intact. Absent: motor sensory deficit Psychiatric exam: Present: depressed, other (Disheveled, cooperative) Skin exam: Present: warm, dry, intact. Absent: cyanosis, diaphoretic Course Vital Signs 04/29/21 04/29/21 17:35 18:06 Temperature 98.2 F 98 F Pulse Rate 86 84 Respiratory 18 20 Rate Blood Pressure 182/107 139/90 O2 Sat by Pulse 97 96 Oximetry - Reevaluation(s) Reevaluation #1: 04/29/21 19:10 Patient had been cleared for EPS, awaiting disposition. Medical Decision Making - Medical Decision Making PT was evaluated by EPS and felt to be clear for discharge. Patient is forward thinking. He has signed a safety plan. He is planning to go to work tomorrow. He has outpatient resources. He is given return parameters. - Lab Data Lab Results 04/29/21 Range/Units 18:50 Urine Opiates Screen Not Detected (NotDetected) Ur Oxycodone Screen Not Detected (NotDetected) Urine Methadone Screen Not Detected (NotDetected) Ur Propoxyphene Screen Not Detected (NotDetected) Ur Barbiturates Screen Not Detected (NotDetected) U Tricyclic Antidepress Not Detected (NotDetected) Ur Phencyclidine Scrn Not Detected (NotDetected) Ur Amphetamines Screen Not Detected (NotDetected) U Methamphetamines Scrn Not Detected (NotDetected) U Benzodiazepines Scrn Not Detected (NotDetected) Urine Cocaine Screen Not Detected (NotDetected) U Marijuana (THC) Screen Detected H (NotDetected) Disposition Clinical Impression: Depression Disposition: HOME SELF-CARE Condition: Fair Instructions (If sedation given, give patient instructions): Depression (ED) Is patient prescribed a controlled substance at d/c from ED?: No Referrals: Ruben Cisneros MD [Primary Care Provider] - 1-2 days Time of Disposition: 20:28
[2021-04-29 19:27] LABS: Amphetamine Screen,Urine Not Detected (NotDetected); Barbiturate Screen,Urine Not Detected (NotDetected); Benzodiazepines Screen,Urine Not Detected (NotDetected); Cocaine Screen,Urine Not Detected (NotDetected); Methadone Screen, Urine Not Detected (NotDetected); Opiate Screen,Urine Not Detected (NotDetected); Oxycodone Screen, Urine Not Detected (NotDetected); Phencyclidine Screen,Urine Not Detected (NotDetected); Tricyclic Antidepressant,Urine Not Detected (NotDetected)
[2021-04-29 19:28] LABS: Urn Cannabinoid Scrn Detected (NotDetected)
== END 2021-04-29 20:53 | disposition home or self-care (01) ==
LOC: EC 17:24
DX: F32.9 Major depressive disorder, single episode, unspecified (principal); F17.200 Nicotine dependence, unspecified, uncomplicated; Z91.018 Allergy to other foods; Z88.8 Allergy status to other drugs, medicaments and biological substances
CPT/HCPCS: 80306; 99284

== ENCOUNTER 2021-08-11 06:19 | Emergency (ER) | payer OTHER ==
[2021-08-11 06:34] VITALS: RESP 18; TEMP 98.6
--- NOTE | 2021-08-11 06:49 | ED ---
Seizure HPI - General Chief Complaint: Seizure Stated Complaint: Seizures Time Seen by Provider: 08/11/21 06:38 Source: patient, RN notes reviewed Mode of arrival: ambulatory Limitations: no limitations - History of Present Illness Initial Comments: 26-year-old male presents emergency from chief complaint of seizure. Patient has a long history of seizures states that he is supposed to be on Keppra but states he's having issues taking it he states that he was [id number], states that he wants to follow-up with neurologist for medications change. Patient states he is currently not taking in which she's had some seizures reported last couple days. Patient has any focal weakness of her headache patient on no new medications. Patient states that he got follow-up neurovascularly did not have insurance but currently has insurance is requesting to follow-up neurology. - Related Data Previous Rx's Medication Instructions Recorded Lacosamide [Vimpat] 100 mg PO BID #30 tablet 08/11/21 Allergies Allergy/AdvReac Type Severity Reaction Status Date / Time bee venom protein (honey bee) Allergy Anaphylaxis Verified 08/11/21 07:15 CITRAMALIC ACID Allergy Redness, Uncoded 08/11/21 07:15 dizzy Review of Systems ROS Statement: Those systems with pertinent positive or pertinent negative responses have been documented in the HPI. ROS Other: All systems not noted in ROS Statement are negative. Past Medical History Past Medical History: Seizure Disorder History of Any Multi-Drug Resistant Organisms: None Reported Past Surgical History: No Surgical Hx Reported Additional Past Surgical History / Comment(s): wisdom teeth extraction, facial Past Psychological History: ADD/ADHD, Anxiety, Bipolar, Depression Smoking Status: Never smoker Past Alcohol Use History: None Reported Past Drug Use History: Marijuana General Exam Limitations: no limitations General appearance: alert, in no apparent distress Head exam: Present: atraumatic, normocephalic, normal inspection Eye exam: Present: normal appearance, PERRL, EOMI. Absent: scleral icterus, conjunctival injection, periorbital swelling ENT exam: Present: normal exam, mucous membranes moist Neck exam: Present: normal inspection, full ROM. Absent: tenderness, meningismus, lymphadenopathy Respiratory exam: Present: normal lung sounds bilaterally. Absent: respiratory distress, wheezes, rales, rhonchi, stridor Cardiovascular Exam: Present: regular rate, normal rhythm, normal heart sounds. Absent: systolic murmur, diastolic murmur, rubs, gallop, clicks Neurological exam: Present: alert, oriented X3, CN II-XII intact, reflexes normal. Absent: motor sensory deficit Course Vital Signs 08/11/21 06:31 Temperature 98.6 F Pulse Rate 87 Respiratory 18 Rate Blood Pressure 183/81 O2 Sat by Pulse 98 Oximetry Medical Decision Making - Medical Decision Making 26-year-old presented for seizures. Patient had a history. Patient labs unremarkable follow with neurologist return parameters were discussed. - Lab Data Result diagrams: 08/11/21 07:08 08/11/21 07:08 Lab Results 08/11/21 08/11/21 08/11/21 Range/Units 07:08 07:08 07:08 WBC 7.8 (3.8-10.6) k/uL RBC 5.26 (4.30-5.90) m/uL Hgb 15.5 (13.0-17.5) gm/dL Hct 46.3 (39.0-53.0) % MCV 88.1 (80.0-100.0) fL MCH 29.5 (25.0-35.0) pg MCHC 33.5 (31.0-37.0) g/dL RDW 13.3 (11.5-15.5) % Plt Count 266 (150-450) k/uL MPV 6.6 Neutrophils % 79 % Lymphocytes % 16 % Monocytes % 3 % Eosinophils % 1 % Basophils % 0 % Neutrophils # 6.1 (1.3-7.7) k/uL Lymphocytes # 1.3 (1.0-4.8) k/uL Monocytes # 0.3 (0-1.0) k/uL Eosinophils # 0.0 (0-0.7) k/uL Basophils # 0.0 (0-0.2) k/uL Sodium 139 (137-145) mmol/L Potassium 4.3 (3.5-5.1) mmol/L Chloride 104 (98-107) mmol/L Carbon Dioxide 28 (22-30) mmol/L Anion Gap 7 mmol/L BUN 15 (9-20) mg/dL Creatinine 0.96 (0.66-1.25) mg/dL Est GFR (CKD-EPI)AfAm >90 (>60 ml/min/1.73 sqM) Est GFR (CKD-EPI)NonAf >90 (>60 ml/min/1.73 sqM) Glucose 107 H (74-99) mg/dL Calcium 9.5 (8.4-10.2) mg/dL Magnesium 2.4 H (1.6-2.3) mg/dL Total Bilirubin 0.6 (0.2-1.3) mg/dL AST 37 (17-59) U/L ALT 63 H (4-49) U/L Alkaline Phosphatase 54 (38-126) U/L Total Protein 7.3 (6.3-8.2) g/dL Albumin 4.6 (3.5-5.0) g/dL Disposition Clinical Impression: Generalized seizure Disposition: HOME SELF-CARE Condition: Stable Instructions (If sedation given, give patient instructions): Seizure/Epilepsy Discharge Instructions & Follow-Up Additional Instructions: Please return to the Emergency Department if symptoms worsen or any other concerns. Prescriptions: Lacosamide [Vimpat] 100 mg PO BID #30 tablet Is patient prescribed a controlled substance at d/c from ED?: No Referrals: Ruben Cisneros MD [Primary Care Provider] - 1-2 days Juanito Juan MD [STAFF PHYSICIAN] - 1-2 days Time of Disposition: 07:50
[2021-08-11 07:35] LABS: Basophils % (A) 0 %; Eosinophils % (A) 1 %; HCT 46.3 % (39.0-53.0); HGB 15.5 gm/dL (13.0-17.5); Lymphocytes # (A) 1.3 k/uL (1.0-4.8); Lymphocytes % (A) 16 %; MCH 29.5 pg (25.0-35.0); MCHC 33.5 g/dL (31.0-37.0); MCV 88.1 fL (80.0-100.0); Mean Platelet Volume 6.6; Monocytes # (A) 0.3 k/uL (0-1.0); Monocytes % (A) 3 %; Neutrophils # (A) 6.1 k/uL (1.3-7.7); Neutrophils % (A) 79 %; Platelet Count 266 k/uL (150-450); RBC 5.26 m/uL (4.30-5.90); RDW 13.3 % (11.5-15.5); WBC 7.8 k/uL (3.8-10.6)
[2021-08-11 07:42] LABS: ALT 63 U/L (4-49); AST 37 U/L (17-59); African American GFR (CKD) >90 (>60 ml/min/1.73 sqM); Albumin 4.6 g/dL (3.5-5.0); Alkaline Phosphatase 54 U/L (38-126); Anion Gap 7 mmol/L; Blood Urea Nitrogen 15 mg/dL (9-20); Calcium 9.5 mg/dL (8.4-10.2); Carbon Dioxide 28 mmol/L (22-30); Chloride 104 mmol/L (98-107); Glucose 107 mg/dL (74-99); Non-African American GFR(CKD) >90 (>60 ml/min/1.73 sqM); Potassium 4.3 mmol/L (3.5-5.1); Sodium 139 mmol/L (137-145); Total Bilirubin 0.6 mg/dL (0.2-1.3); Total Protein 7.3 g/dL (6.3-8.2)
[2021-08-11 08:38] VITALS: BP 138/87; PULSE 70
== END 2021-08-11 08:37 | disposition home or self-care (01) ==
LOC: EC 06:19
DX: R56.9 Unspecified convulsions (principal); Z91.030 Bee allergy status; Z88.1 Allergy status to other antibiotic agents
CPT/HCPCS: 36415; 80053; 83735; 85025; 93005; 99285

== ENCOUNTER 2022-03-05 22:43 | Inpatient (IN) | payer OTHER, MEDICAID ==
[2022-03-05 23:33] VITALS: RESP 18
[2022-03-05] MEDS ORDERED: LORazepam 0.5 MG TAB PO STA (23:53)
--- NOTE | 2022-03-06 01:33 | ED ---
General Adult HPI - General Chief complaint: Psychiatric Symptoms Stated complaint: Mental Health Time Seen by Provider: 03/05/22 23:33 Source: patient, RN notes reviewed, old records reviewed Mode of arrival: ambulatory - History of Present Illness Initial comments: Patient is a 27-year-old male with past medical history remarkable for bipolar disorder, psychiatric history, suicidal ideations, stress-induced seizures who presents emergency Department complaining of worsening suicidal ideations and stress. States he has them on a daily basis. Like to be evaluated by psych iatry. Is not on any antiepileptic medications. Denies suicidal plan. Denies attempt. Denies homicidal ideations, attempts, plans. Denies visual or auditory hallucinations. His no other acute complaints at this time. Presents for psychiatric evaluation. Patient is scared that his suicidal thoughts will become worse and he may attempt something. - Related Data Previous Rx's Medication Instructions Recorded Lacosamide [Vimpat] 100 mg PO BID #30 tablet 08/11/21 Phenytoin Sodium Extended 100 mg PO BID #30 capsule 08/11/21 [Dilantin] Allergies Allergy/AdvReac Type Severity Reaction Status Date / Time bee venom protein (honey bee) Allergy Anaphylaxis Verified 03/05/22 23:33 CITRAMALIC ACID Allergy Redness, Uncoded 03/05/22 23:33 dizzy Review of Systems ROS Statement: Those systems with pertinent positive or pertinent negative responses have been documented in the HPI. Review of Systems: CONST: Denies fever EYES: Denies blurry vision ENT: Denies nasal congestion C/V: Denies Chest pain RESP: Denies shortness of breath GI: Denies abdominal pain : Denies dysuria SKIN: Denies rash. MSK: Denies joint pain. NEURO: Denies headache PSYCH: Denies homicidal ideations/plans/attempts. Denies visual or auditory hallucinations. He endorses suicidal ideations. Denies plan or attempt. ROS Other: All systems not noted in ROS Statement are negative. Past Medical History Past Medical History: Seizure Disorder History of Any Multi-Drug Resistant Organisms: None Reported Past Surgical History: No Surgical Hx Reported Additional Past Surgical History / Comment(s): wisdom teeth extraction, facial Past Psychological History: ADD/ADHD, Anxiety, Bipolar, Depression Smoking Status: Never smoker Past Alcohol Use History: None Reported Past Drug Use History: Marijuana General Exam - General Exam Comments Initial Comments: General: Appears in no acute distress. HEAD: Normal with no signs of head trauma. EYES: PERRLA, EOMI, conjunctiva normal, no discharge. ENT: Hearing grossly intact. RESPIRATORY: Clear breath sounds bilaterally. No wheezes, rales, or rhonchi. C/V: Regular rate and rhythm. S1 and S2 auscultated, no edema, peripheral pulses 2+ and intact throughout ABD: Abd is soft, nontender, nondistended EXT: Normal range of motion, no obvious deformity SKIN: No rashes or lesions observed on exposed skin. NEURO: Alert and oriented 4. Course Vital Signs 03/05/22 23:28 Temperature 98 F Pulse Rate 78 Respiratory 18 Rate Blood Pressure 148/93 O2 Sat by Pulse 98 Oximetry Medical Decision Making - Medical Decision Making Based on the patient's presentation and physical exam, do believe he requires psychiatric evaluation. Patient was placed in green scrubs. Sitter is ordered. She said precautions placed. BAT is 0. UDS is pending. Vital signs are within normal limits. Patient is medically cleared for evaluation by psychiatry. Disposition is pending EPS evaluation. EPS evaluated the patient. They determined he needs inpatient psychiatric crite ev. Patient will be admitted in stable condition. Disposition Clinical Impression: Encounter for psychiatric assessment, Suicidal ideation Disposition: TRANSFER TO PSYCH HOSP/UNIT Condition: Stable Referrals: None,Stated [Primary Care Provider] - 1-2 days
[2022-03-06] MEDS ORDERED: ACETAMINOPHEN TAB 325 MG TAB PO PRN (04:54)
[2022-03-06] MEDS ORDERED: LORazepam 1 MG TAB PO PRN (04:54)
[2022-03-06] MEDS ORDERED: LORazepam 2 MG/ML INJ IM PRN (05:00)
[2022-03-06 05:39] LABS: Amphetamine Screen,Urine Not Detected (NotDetected); Barbiturate Screen,Urine Not Detected (NotDetected); Benzodiazepines Screen,Urine Not Detected (NotDetected); Cocaine Screen,Urine Not Detected (NotDetected); Methadone Screen, Urine Not Detected (NotDetected); Opiate Screen,Urine Not Detected (NotDetected); Oxycodone Screen, Urine Not Detected (NotDetected); Phencyclidine Screen,Urine Not Detected (NotDetected); Tricyclic Antidepressant,Urine Not Detected (NotDetected); Urn Cannabinoid Scrn Detected (NotDetected)
[2022-03-06] MEDS ORDERED: haloperidoL 5 MG TAB PO PRN (06:00)
[2022-03-06] MEDS ORDERED: HALOPERIDOL LACTATE 5 MG/ML 1 ML VIAL IM PRN (06:00)
[2022-03-06 06:23] VITALS: TEMP 97.6
[2022-03-06] MEDS ORDERED: MAG HYDROX/AL HYDROX/SIMETH 30 ML CUP PO PRN (08:00)
[2022-03-06] MEDS ORDERED: NICOTINE 14MG/24HR PATCH TRANSDERM SCH (09:00)
[2022-03-06 10:07] LABS: Basophils # (A) 0.1 k/uL (0-0.2); Basophils % (A) 1 %; Eosinophils # (A) 0.1 k/uL (0-0.7); Eosinophils % (A) 1 %; HCT 47.2 % (39.0-53.0); Lymphocytes # (A) 1.6 k/uL (1.0-4.8); Lymphocytes % (A) 19 %; MCH 28.6 pg (25.0-35.0); MCHC 31.7 g/dL (31.0-37.0); MCV 90.1 fL (80.0-100.0); Mean Platelet Volume 6.5; Monocytes # (A) 0.4 k/uL (0-1.0); Monocytes % (A) 5 %; Neutrophils # (A) 6.2 k/uL (1.3-7.7); Neutrophils % (A) 74 %; Platelet Count 277 k/uL (150-450); RBC 5.23 m/uL (4.30-5.90); RDW 12.6 % (11.5-15.5); WBC 8.4 k/uL (3.8-10.6)
[2022-03-06 10:24] LABS: ALT 25 U/L (4-49); AST 20 U/L (17-59); African American GFR (CKD) >90 (>60 ml/min/1.73 sqM); Albumin 4.5 g/dL (3.5-5.0); Alkaline Phosphatase 62 U/L (38-126); Anion Gap 9 mmol/L; Blood Urea Nitrogen 13 mg/dL (9-20); Calcium 9.3 mg/dL (8.4-10.2); Carbon Dioxide 28 mmol/L (22-30); Chloride 101 mmol/L (98-107); Glucose 87 mg/dL (74-99); Non-African American GFR(CKD) >90 (>60 ml/min/1.73 sqM); Potassium 4.7 mmol/L (3.5-5.1); Sodium 138 mmol/L (137-145); Total Bilirubin 0.5 mg/dL (0.2-1.3); Total Protein 6.7 g/dL (6.3-8.2)
--- NOTE | 2022-03-06 11:29 | P.HPMEDMHU ---
History of Present Illness H&P Date: 03/06/22 Patient is a 27 year old male who presented to the ER with complaints of worsening suicidal ideation and stress. He was subsequently admitted to the mental health unit. Patient seen and examined. He denies any recent cough, cold, fever, flu. He states he just needs help with his mental health. He states he has a history of epilepsy but not does not take any seizure medications and just smokes weed. Pertinent positives and negatives as discussed in HPI, a complete review of s ystems was performed and all other systems are negative. Vital signs reviewed General: nontoxic, no distress, appears at stated age Derm: warm, dry Head: atraumatic, normocephalic, symmetric Eyes: EOMI, no lid lag, anicteric sclera, pupils equal round reactive to light ENT: Nose and ears atraumatic, no thrush, no pharyngeal erythema Neck: No thyromegaly, no cervical lymphadenopathy, trachea midline, supple Mouth: no lip lesion, mucus membranes moist Cardiovascular: S1S2 reg, no murmur, positive posterior tibial pulse bilateral, no edema, capillary refill less than 2 seconds Lungs: clear to auscultation bilateral, no rhonchi, no rales, no wheeze, no accessory muscle use Abdominal: soft, nontender to palpation, no guarding, no appreciable organomegaly, normal bowel sounds Ext: no gross muscle atrophy, muscle strength appears equal bilaterally, no contractures Neuro: CN II-XII grossly intact, no focal neuro deficits Psych: Alert, oriented, appropriate affect Assessment/Plan: Seizure disorder -Patient is not chronically on any medications -Monitor for breakthrough seizures -Outpatient follow-up Marijuana use -Would encourage cessation. Patient is not interested at this time. Bipolar disorder -Your psych management Thank you for allowing us to participate in the care of this pleasant patient. Do not hesitate to contact us with questions. Someone can be reached from the [facility] hospitalist group all hours of the day at [phone] or via [employer]. Past Medical History Past Medical History: Seizure Disorder History of Any Multi-Drug Resistant Organisms: None Reported Past Surgical History: No Surgical Hx Reported Additional Past Surgical History / Comment(s): wisdom teeth extraction, facial Past Psychological History: ADD/ADHD, Anxiety, Bipolar, Depression Smoking Status: Never smoker Past Alcohol Use History: None Reported Past Drug Use History: Marijuana Medications and Allergies Home Medications Medication Instructions Recorded Confirmed Type Lacosamide [Vimpat] 100 mg PO BID #30 tablet 08/11/21 Rx Phenytoin Sodium Extended 100 mg PO BID #30 capsule 08/11/21 Rx [Dilantin] Allergies Allergy/AdvReac Type Severity Reaction Status Date / Time bee venom protein (honey bee) Allergy Anaphylaxis Verified 03/05/22 23:33 CITRAMALIC ACID Allergy Redness, Uncoded 03/05/22 23:33 dizzy Physical Exam Osteopathic Statement: *. No significant issues noted on an osteopathic structural exam other than those noted in the History and Physical/Consult. Vitals: Vital Signs Temp Pulse Pulse Resp BP BP Pulse Ox 03/06/22 06:08 97.6 F 73 18 131/92 98 03/05/22 23:28 98 F 78 18 148/93 98 Intake and Output 03/05/22 03/06/22 03/06/22 22:59 06:59 14:59 Other: Weight 109.2 kg Cranial Nerve Examination - Cranial Nerves Cranial Nerve II- Optic: Intact Cranial Nerve III- Oculomotor: Intact Cranial Nerve IV- Trochlear: Intact Cranial Nerve V- Trigeminal: Intact Cranial Nerve - Abducens: Intact Cranial Nerve VII- Facial: Intact Cranial Nerve VIII- Auditory: Intact Cranial Nerve IX- Glossopharyngeal: Intact Cranial Nerve X- Vagus: Intact Cranial Nerve XI- Accessory: Intact Cranial Nerve XII- Hypoglossal: Intact Results CBC & Chem 7: 03/06/22 09:31 03/06/22 09:31 Labs: Abnormal Lab Results - Last 24 Hours (Table) 03/06/22 Range/Units 00:26 U Marijuana (THC) Screen Detected H (NotDetected) Thrombosis Risk Factor Assmnt - Choose All That Apply Any of the Below Risk Factors Present?: No
[2022-03-06] MEDS ORDERED: DIVALPROEX ER 500 MG TAB.ER.24H PO SCH (21:00)
[2022-03-06] MEDS ORDERED: OLANZapine 5 MG TAB PO SCH (21:00)
[2022-03-06] MEDS ORDERED: HALOPERIDOL LACTATE 5 MG/ML 1 ML VIAL IM STA (21:00)
[2022-03-06] MEDS ORDERED: LORazepam 2 MG/ML INJ IM ONE (21:02)
--- NOTE | 2022-03-06 21:32 | P.MHFACE ---
Face to Face Restrain/Seclus - Evaluation Patient's Immediate Situation: Endangers staff safety, Violent behavior Patient's Reaction to the Intervention: Uncooperative, Angry, Hostile, Anxious, Aggressive, Combative Patient's Medical & Behavioral Condition: Awake, Alert, Anxious, Agitated, Depressed Need to Continue or Terminate Restraint or Seclusion: Continue Need to Continue or Terminate Restraint/Seclusion - Comment: Patient continues to be uncooperative and make threats to staff. Tells me to go to [facility]. Refuses vitals. Refuses to speak to staff currently. Will not agree to safety behaviors at this time. Tells me that the psychiatrist who will see him tomorrow can also go to [facility]. Face to Face Eval of Restraint Date: 03/06/22 Face to Face Eval of Restraint Time: 09:15
[2022-03-06] MEDS ORDERED: chlorproMAZINE 25 MG/ML 2 ML AMP IM ONE (21:47)
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
[2022-03-07 07:00] VITALS: BP 112/59; PULSE 80
[2022-03-07 08:16] LABS: Chol/HDL Ratio 4.82 Ratio; LDL Cholesterol,Calculated 118.4 mg/dL (0.0-131.0)
[2022-03-07] MEDS ORDERED: FLUoxetine HCL 20 MG CAP PO SCH (09:00)
--- NOTE | 2022-03-07 13:28 | P.DS ---
Providers Date of admission: 03/06/22 04:47 Expected date of discharge: 03/07/22 Attending physician: Chaim Kimble MD Consults: 03/06/22 04:54 Consult Physician Routine Consulting Provider: Patric Gomez Consult Reason/Comments: H & P for mental health admission Do you want consulting provider notified?: Yes Primary care physician: Stated None - Discharge Diagnosis(es) (1) Major depressive disorder, recurrent, severe w/o psychotic behavior Status: Acute Priority: High (2) Cluster B personality disorder Status: Acute Priority: High (3) Cannabis use disorder Status: Chronic Priority: Medium Hospital Course: Admission HPI: Patient is a 27 year old male with reported history of seizures, mood disorder, and suicidal ideations. Patient presented to the hospital on 03/05/2022 "complaining of worsening suicidal ideations and stress. States he has them on a daily basis. Like to be evaluated by psychiatry. Is not on any antiepileptic medications. Denies suicidal plan. Denies attempt. Denies homicidal ideations, attempts, plans. Denies visual or auditory hallucinations. His no other acute complaints at this time. Presents for psychiatric evaluation. Patient is scared that his suicidal thoughts will become worse and he may attempt something." On the unit patient has been restless, anxious, demanding to leave, states his anxiety is really high and the stress is causing him to have mini-seziures (no seizures activity observed). Attempts to redirect patient were not successful and he continued to make demands of staff and threatening to leave the unit. He signed a three-day letter for intent to terminate care prior to being seen by this appeals writer. He continues to be loud on the unit and demand to leave. He was given Ativan 1 mg po x 1 for severe anxiety but little benefit. On my assessment, patient was seen with male staff member in the room due to his propensity to escalate. Patient continued to make threats to leave the unit and demand to be discharged. His insight into his need for treatment and judgment are poor. His thought process is laced with thought distortions, and he appears to be utilizing maladaptive defense mechanisms. He reports a long history of depression, anxiety, and trauma starting in childhood. He avoids answering when asked if he is having suicidal thoughts currently, and derails into demands to leave the unit and the stress of being on the unit will cause him to have "grand-mal seizures". He is argumentative and antagonistic throughout the assessment. He reports a prior history of bipolar disorder and was on Abilify many years ago but this was not helpful. When asked about manic episodes in the past, he reports a history of chronic significant mood lability that varies hour to hour throughout the day, that is more consistent with personality traits, low frustration tolerance, and trauma responses, and are not characteristic of manic episodes. He does not respond well to psychoeducation and becomes increasingly angry when discussing psychotropic medications, the need for hospitalization, and that the intent to terminate care he signed has a 72-hour wait period for the psychiatrist to finalize his care (excluding Sundays and hols). He does not appear to be overtly psychotic, does not appear to be responding to internal stimuli, but does appear paranoid and claims he was lied to and people do him wrong. He admits to using marijuana. He has a history of heavy alcohol use but quit drinking about 4 years ago. He also has a history of abusing Adderall in the past but not recently. We discussed medications including Prozac, Zyprexa and Depakote which he initially agreed to take, but patient became agitated with staff when nurse was attempting to give him his night time medications. He refused his medications and continued to demand discharge, despite multiple attempts by several different staff to explain the need for continued hospitalization for st abilization. He became agitated with staff, was angry, hostile, aggressive, combative, and so he was placed in 4-point restraints (continued to fight staff, kick, hit) and was given Haldol 5 mg IM x 1 and Ativan 2 mg IM x 1 for severe agitation. On my [id number] assessment at 9:15 pm while he was in restraints, he continued to be upset, make threats, telling me to go to hell, and tells me the psychiatrist that will see him tomorrow can also go to hell. Hospital course: Upon admission to the unit patient was initially noted to be agitated when informed that he was unable to leave. He is quite oppositional. He did require restraints. The patient also signed an AMA for discharge on 03/06/2022. Upon evaluation by this provider, the patient provides a significant history of borderline personality disorder and trauma. However, the patient is vehemently denying any suicidal or homicidal ideation, intention, and/or plan. He appears to be pre-contemplative in regards to fully engaging in psychiatric care at this time despite being provided with significant education on medications and talk therapy management. The patient remains vehement that he is not a danger to himself or others. He expresses a strong desire to live for himself and for his family, in particular his children and his ex-. He reports no auditory or visual hallucinations. He denies any paranoia or other delusions. The patient is apologetic for his outburst yesterday. The patient was counseled at length on importance of medication adherence and appropriate outpatient follow-up. Furthermore, we disc ussed at length the use of appropriate coping skills and communication skills. As the patient signed an AMA form and is not presenting with imminent risk of harm to self or others, he was subsequently discharged. He was encouraged to utilize crisis numbers if necessary and to follow-up in the outpatient setting with a psychotherapist and psychiatrist. Mental status exam: General Appearance: Patient appears to be stated age is alert, pleasant, and cooperative. Patient is in no acute distress and has fair hygiene and grooming Behavior: Patient is calmly seated without any agitated behavior. Speech: Patient's speech is fluent and nonpressured. Mood/Affect: Patient reports their mood is "feeling okay", affect is congruent and euthymic. Suicidality/Homicidality: Patient denies having any suicidal or homicidal ideation intent or plan. Perceptions: Patient denies any auditory or visual hallucinations. Though content/process: There is no evidence of any delusional thought content and thought process is linear and goal-directed. Patient is future oriented Memory and concentration: AOX3, grossly intact for the purposes of this session. Can spell "WORLD" backwards correctly. Judgment and insight: Improved with guarded prognosis Impression: Major depressive disorder, recurrent, severe, without psychotic features Cluster B personality disorder Cannabis use disorder Stimulant use disorder, in remission Alcohol use disorder, in remission Plan: -Continue with discharge today as patient has improved and stabilized psychiatrically and is not currently an imminent threat to himself and/or others. Patient will remain at chronically elevated risk for harm to self and/or others due to his poor coping skills and poor ego integrity. -Continue medications: Patient will be discharged on a regimen of Prozac 20 mg daily for depression/anxiety as well as Depakote ER 500 mg by mouth at bedtime for mood stabilization and seizure disorder -Patient was counseled on the need for medication compliance and appropriate follow-up at mental health and also primary care for medical issues. Patient verbalized understanding and agreed. -Patient signed AMA - Risks, benefits, and treatment alternatives were discussed with the patient prior to his discharge. -Patient was encouraged to follow-up in outpatient setting. -The patient was counseled at length on abstaining from all substances including alcohol and marijuana. -Psychoeducation and supportive therapy provided to patient. Risks and benefits of pharmacological treatment versus the risks and benefits of nontreatment weight and discussed. Informed consent discussion held. Common side effects of psychotropics discussed such as, but not limited to headache, GI disturbance, sexual dysfunction, movement disorders, sedation, and orthostatic hypotension. Life threatening and blackbox warnings of prescribed medications also discussed. Potential risks of operating a vehicle or heavy machinery discussed with patient at length. Advised on importance of compliance and a reliable and responsible manner. Patient advised to review FDA consumer labeling of all medications prior to taking. Patient verbalized understanding of potential risks, and agrees with current treatment plan. Patient advised to medically contact physician/emergency personnel if any acute changes in condition occur. Vital Signs Temp 97.6 F 03/06/22 06:08 Pulse 80 03/06/22 21:15 Resp 18 03/06/22 21:15 BP 112/59 03/06/22 21:15 Pulse Ox 98 03/06/22 06:08 FiO2 Intake & Output 03/06/22 03/07/22 03/07/22 18:59 06:59 18:59 Weight 108.8 kg Laboratory Results WBC 8.4 k/uL (3.8-10.6) 03/06/22 09:31 RBC 5.23 m/uL (4.30-5.90) 03/06/22 09:31 Hgb 15.0 gm/dL (13.0-17.5) 03/06/22 09:31 Hct 47.2 % (39.0-53.0) 03/06/22 09:31 MCV 90.1 fL (80.0-100.0) 03/06/22 09:31 MCH 28.6 pg (25.0-35.0) 03/06/22 09:31 MCHC 31.7 g/dL (31.0-37.0) 03/06/22 09: RDW 12.6 % (11.5-15.5) 03/06/22 09:31 Plt Count 277 k/uL (150-450) 03/06/22 09:31 MPV 6.5 03/06/22 09: Neutrophils % 74 % 03/06/22 09:31 Lymphocytes % 19 % 03/06/22 09:31 Monocytes % 5 % 03/06/22 09:31 Eosinophils % 1 % 03/06/22 09: Basophils % 1 % 03/06/22 09:31 Neutrophils # 6.2 k/uL (1.3-7.7) 03/06/22 09:31 Lymphocytes # 1.6 k/uL (1.0-4.8) 03/06/22 09:31 Monocytes # 0.4 k/uL (0-1.0) 03/06/22 09:31 Eosinophils # 0.1 k/uL (0-0.7) 03/06/22 09:31 Basophils # 0.1 k/uL (0-0.2) 03/06/22 09:31 Sodium 138 mmol/L (137-145) 03/06/22 09:31 Potassium 4.7 mmol/L (3.5-5.1) 03/06/22 09:31 Chloride 101 mmol/L (98-107) 03/06/22 09: Carbon Dioxide 28 mmol/L (22-30) 03/06/22 09:31 Anion Gap 9 mmol/L 03/06/22 09:31 BUN 13 mg/dL (9-20) 03/06/22 09:31 Creatinine 0.99 mg/dL (0.66-1.25) 03/06/22 09:31 Est GFR (CKD-EPI)AfAm >90 (>60 ml/min/1.73 sqM) 03/06/22 09:31 Est GFR (CKD-EPI)NonAf >90 (>60 ml/min/1.73 sqM) 03/06/22 09: Glucose 87 mg/dL (74-99) 03/06/22 09:[address] Glu mg/dL 112 09/04/22 09:31 Hemoglobin A1c 5.5 % (0.0-6.0) 03/06/22 09:31 Calcium 9.3 mg/dL (8.4-10.2) 03/06/22 09:31 Total Bilirubin 0.5 mg/dL (0.2-1.3) 03/06/22 09:31 AST 20 U/L (17-59) 03/06/22 09:31 ALT 25 U/L (4-49) 03/06/22 09:31 Alkaline Phosphatase 62 U/L (38-126) 03/06/22 09:31 Total Protein 6.7 g/dL (6.3-8.2) 03/06/22 09:31 Albumin 4.5 g/dL (3.5-5.0) 03/06/22 09:31 Triglycerides 137.00 mg/dL (0.00-149.00) 03/06/22 09:31 Cholesterol 184.00 mg/dL (0.00-200.00) 03/06/22 09:31 LDL Cholesterol, Calc 118.4 mg/dL (0.0-131.0) 03/06/22 09:31 VLDL Cholesterol, Calc 27.40 mg/dL (5.00-40.00) 03/06/22 09:31 HDL Cholesterol 38.20 mg/dL (40.00-60.00) L 03/06/22 09:31 Cholesterol/HDL Ratio 4.82 Ratio 03/06/22 09: TSH 1.220 mIU/L (0.465-4.680) 03/06/22 09:31 Urine Opiates Screen Not Detected (NotDetected) 03/06/22 00:26 Ur Oxycodone Screen Not Detected (NotDetected) 03/06/22 00:26 Urine Methadone Screen Not Detected (NotDetected) 03/06/22 00:26 Ur Propoxyphene Screen Not Detected (NotDetected) 03/06/22 00:26 Ur Barbiturates Screen Not Detected (NotDetected) 03/06/22 00:26 U Tricyclic Antidepress Not Detected (NotDetected) 03/06/22 00:26 Ur Phencyclidine Scrn Not Detected (NotDetected) 09/04/22 00:26 Ur Amphetamines Screen Not Detected (NotDetected) 03/06/22 00:26 U Methamphetamines Scrn Not Detected (NotDetected) 03/06/22 00:26 U Benzodiazepines Scrn Not Detected (NotDetected) 03/06/22 00:26 Urine Cocaine Screen Not Detected (NotDetected) 03/06/22 00:26 U Marijuana (THC) Screen Detected (NotDetected) H 03/06/22 00:26 Coronavirus (PCR) Not Detected (Not Detectd) 03/06/22 04:03 Allergies Allergy/AdvReac Type Severity Reaction Status Date / Time bee venom protein (honey bee) Allergy Anaphylaxis Verified 03/05/22 23:33 CITRAMALIC ACID Allergy Redness, Uncoded 03/05/22 23:33 dizzy Patient Condition at Discharge: Stable Plan - Discharge Summary Discharge Rx Participant: Yes New Discharge Prescriptions: New FLUoxetine HCL [PROzac] 20 mg PO DAILY 30 Days cap Divalproex ER [Depakote ER] 500 mg PO HS 30 Days tab Continue Lacosamide [Vimpat] 100 mg PO BID #30 tablet Discontinued Phenytoin Sodium Extended [Dilantin] 100 mg PO BID #30 capsule Discharge Medication List Lacosamide [Vimpat] 100 mg PO BID #30 tablet 08/11/21 [Rx] Divalproex ER [Depakote ER] 500 mg PO HS 30 Days tab 03/07/22 [Rx] FLUoxetine HCL [PROzac] 20 mg PO DAILY 30 Days cap 03/07/22 [Rx] Follow up Appointment(s)/Referral(s): [facility] [NON-STAFF] - 1 Week Patient Instructions/Handouts: How to Stop Smoking (ED), Bipolar Disorder (DC) Activity/Diet/Wound Care/Special Instructions: Senior Mechanical Estimator to contact on Thursday 03/08 to arrange follow up appointment. Avoid the use of street drugs and alcohol. Take all prescriptions as prescribed. Whe n you are in need of refills on your medications, please contact your medical provider and/or outpatient psychiatrist to have this done. Please go to scheduled outpatient appointment for aftercare treatment. If symptoms return or become worse, call the crisis line at and/or go to the nearest emergency room for evaluation. Discharge Disposition: HOME SELF-CARE
== END 2022-03-07 12:39 | disposition home or self-care (01) | DRG 885 ==
LOC: EC 22:43 → 3MHU 03-06 04:47
PROVIDERS: ADMIT Psychiatry & Neurology Psychiatry; ATTEND Psychiatry & Neurology Psychiatry
DX: F33.3 Major depressive disorder, recurrent, severe with psychotic symptoms (principal); R45.851 Suicidal ideations; Z20.822 Contact with and (suspected) exposure to COVID-19; F10.21 Alcohol dependence, in remission; F90.9 Attention-deficit hyperactivity disorder, unspecified type; F12.10 Cannabis abuse, uncomplicated; F15.11 Other stimulant abuse, in remission; F41.9 Anxiety disorder, unspecified; F60.3 Borderline personality disorder; F60.89 Other specific personality disorders; G40.909 Epilepsy, unspecified, not intractable, without status epilepticus; Z78.1 Physical restraint status; Z91.51 Personal history of suicidal behavior; Z91.030 Bee allergy status; Z88.8 Allergy status to other drugs, medicaments and biological substances
CPT/HCPCS: 80053; 80061; 80306; 82075; 83036; 84443; 85025; 87635; 99285

== ENCOUNTER 2022-04-03 09:40 | Emergency (ER) | payer OTHER, MEDICAID ==
[2022-04-03 09:50] VITALS: RESP 18; TEMP 98.6
[2022-04-03] MEDS ORDERED: SODIUM CHLORIDE 0.9% 1,000 ML IV STA (09:54)
[2022-04-03] MEDS ORDERED: levETIRAcetam IV 1,500 MG in SALINE 1 100ML.BAG IVPB STA (09:55)
[2022-04-03] MEDS ORDERED: DIVALPROEX ER 500 MG TAB.ER.24H PO STA (10:26)
[2022-04-03] MEDS ORDERED: LACOSAMIDE 50 MG TABLET PO STA (10:26)
[2022-04-03 10:29] LABS: Basophils % (A) 1 %; Eosinophils # (A) 0.1 k/uL (0-0.7); Eosinophils % (A) 2 %; HCT 48.5 % (39.0-53.0); HGB 15.5 gm/dL (13.0-17.5); Lymphocytes # (A) 1.6 k/uL (1.0-4.8); Lymphocytes % (A) 28 %; MCV 90.6 fL (80.0-100.0); Mean Platelet Volume 7.1; Monocytes # (A) 0.2 k/uL (0-1.0); Monocytes % (A) 4 %; Neutrophils # (A) 3.6 k/uL (1.3-7.7); Neutrophils % (A) 64 %; Platelet Count 250 k/uL (150-450); RBC 5.36 m/uL (4.30-5.90); RDW 12.7 % (11.5-15.5); WBC 5.6 k/uL (3.8-10.6)
[2022-04-03 10:35] LABS: Appearance,Urine Clear (Clear); Bacteria,Urine Rare /hpf; Bilirubin,Urine Negative (Negative); Blood,Urine Trace (Negative); Color,Urine Light Yellow; Glucose,Urine (UA) Negative (Negative); Ketones,Urine Trace (Negative); Leukocyte Esterase,Urine Negative (Negative); Mucus,Urine Rare /hpf; Nitrite,Urine Negative (Negative); Protein,Urine 1+ (Negative); RBC,Urine <1 /hpf (0-5); Specific Gravity,Urine 1.014 (1.001-1.035); Urobilinogen,Urine <2.0 mg/dL (<2.0); WBC,Urine <1 /hpf (0-5)
[2022-04-03 10:38] LABS: ALT 29 U/L (4-49); AST 20 U/L (17-59); African American GFR (CKD) >90 (>60 ml/min/1.73 sqM); Albumin 4.8 g/dL (3.5-5.0); Alcohol <10 mg/dL; Alkaline Phosphatase 57 U/L (38-126); Anion Gap 15 mmol/L; Blood Urea Nitrogen 13 mg/dL (9-20); Calcium 9.2 mg/dL (8.4-10.2); Carbon Dioxide 18 mmol/L (22-30); Chloride 106 mmol/L (98-107); Glucose 119 mg/dL (74-99); Non-African American GFR(CKD) >90 (>60 ml/min/1.73 sqM); Potassium 4.6 mmol/L (3.5-5.1); Sodium 139 mmol/L (137-145); Total Bilirubin 0.3 mg/dL (0.2-1.3); Total Protein 6.9 g/dL (6.3-8.2)
[2022-04-03 10:48] LABS: Amphetamine Screen,Urine Not Detected (NotDetected); Barbiturate Screen,Urine Not Detected (NotDetected); Benzodiazepines Screen,Urine Not Detected (NotDetected); Cocaine Screen,Urine Not Detected (NotDetected); Methadone Screen, Urine Not Detected (NotDetected); Opiate Screen,Urine Not Detected (NotDetected); Oxycodone Screen, Urine Not Detected (NotDetected); Phencyclidine Screen,Urine Not Detected (NotDetected); Tricyclic Antidepressant,Urine Not Detected (NotDetected); Urn Cannabinoid Scrn Detected (NotDetected)
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
[2022-04-03 12:13] VITALS: BP 122/81; PULSE 78
== END 2022-04-03 12:14 | disposition home or self-care (01) ==
LOC: EC 09:40
DX: R56.9 Unspecified convulsions (principal); Z91.030 Bee allergy status; Z88.8 Allergy status to other drugs, medicaments and biological substances
CPT/HCPCS: 36415; 70450; 72125; 80053; 80306; 80320; 81001; 85025; 93005; 96360; 96361; 99284

== ENCOUNTER 2022-04-03 14:47 | Inpatient (IN) | payer MEDICAID, OTHER ==
[2022-04-03 15:25] VITALS: TEMP 98
[2022-04-03] MEDS ORDERED: ACETAMINOPHEN TAB 500 MG TAB PO STA (15:40)
[2022-04-03] MEDS ORDERED: LACOSAMIDE 50 MG TABLET PO STA (15:51)
[2022-04-03] MEDS ORDERED: DIVALPROEX 500 MG TABLET.DR PO STA (15:51)
[2022-04-03] MEDS ORDERED: SODIUM CHLORIDE 0.9% 1,000 ML IV STA (15:51)
[2022-04-03 16:07] LABS: Basophils % (A) 0 %; Eosinophils # (A) 0.1 k/uL (0-0.7); Eosinophils % (A) 0 %; HCT 45.6 % (39.0-53.0); Lymphocytes # (A) 0.9 k/uL (1.0-4.8); Lymphocytes % (A) 7 %; MCH 28.9 pg (25.0-35.0); MCHC 32.8 g/dL (31.0-37.0); MCV 88.2 fL (80.0-100.0); Mean Platelet Volume 7.1; Monocytes # (A) 0.5 k/uL (0-1.0); Monocytes % (A) 4 %; Neutrophils # (A) 11.8 k/uL (1.3-7.7); Neutrophils % (A) 88 %; Platelet Count 239 k/uL (150-450); RBC 5.17 m/uL (4.30-5.90); RDW 12.5 % (11.5-15.5); WBC 13.4 k/uL (3.8-10.6)
[2022-04-03 16:22] LABS: ALT 28 U/L (4-49); AST 22 U/L (17-59); African American GFR (CKD) >90 (>60 ml/min/1.73 sqM); Albumin 4.7 g/dL (3.5-5.0); Alkaline Phosphatase 56 U/L (38-126); Anion Gap 10 mmol/L; Blood Urea Nitrogen 14 mg/dL (9-20); Calcium 8.8 mg/dL (8.4-10.2); Carbon Dioxide 25 mmol/L (22-30); Chloride 105 mmol/L (98-107); Glucose 102 mg/dL (74-99); Non-African American GFR(CKD) >90 (>60 ml/min/1.73 sqM); Sodium 140 mmol/L (137-145); Total Bilirubin 0.2 mg/dL (0.2-1.3); Total Protein 6.7 g/dL (6.3-8.2)
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
[2022-04-03] MEDS ORDERED: IBUPROFEN 800 MG TAB PO STA (18:27)
[2022-04-03] MEDS: SODIUM CHLORIDE 0.9% 1,000 ML IV SCH (19:56)
[2022-04-04] MEDS: SODIUM CHLORIDE 0.9% 1,000 ML IV SCH (06:45)
[2022-04-04 08:09] VITALS: BP 130/82; PULSE 72; RESP 16
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
--- NOTE | 2022-04-05 03:02 | EEG ---
ELECTROENCEPHALOGRAM REPORT PREAMBLE: This is a 27-year-old male with seizure disorder. This study is performed to evaluate for any epileptiform activity. EEG FINDINGS: This is a 21-channel digital EEG recorded with video competent, utilizing 10/20 international system with referential and bipolar montages. Background consists of well developed, well regulated moderate voltage activity in 9 to 10 Hz alpha. Background is posterior dominant and reactive to eye opening and closing. Photic driving response was not seen. Frequent left temporal dysrhythmic theta and delta activity were seen, with sharp appearing waves involving the left mid temporal region. No electrographic seizure was recorded. Stage 2 sleep was attained with presence of some vertex waves and sleep spindles. IMPRESSION: This is an abnormal EEG due to intermittent focal slowing with sharp waves seen over the left temporal region. This is suggestive of focal cortical neural dysfunction with underlying cortical irritability and tendency for seizures. Clinical correlation is recommended. Suggest prolonged EEG for further evaluation. MMODL / IJN: [id number] /
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
== END 2022-04-04 12:15 | disposition home or self-care (01) | DRG 101 ==
LOC: EC 14:47 → 5NMEDONC 17:36
PROVIDERS: ADMIT Hospitalist; ATTEND Hospitalist
PROC: 4A10X4Z Monitoring of Central Nervous Electrical Activity, External Approach (ICD-10-PCS; principal; 2022-04-03)
DX: G40.409 Other generalized epilepsy and epileptic syndromes, not intractable, without status epilepticus (principal); Z68.32 Body mass index [BMI] 32.0-32.9, adult; F90.9 Attention-deficit hyperactivity disorder, unspecified type; Z79.899 Other long term (current) drug therapy; F41.9 Anxiety disorder, unspecified; F31.9 Bipolar disorder, unspecified; E66.9 Obesity, unspecified; D72.829 Elevated white blood cell count, unspecified; Z88.8 Allergy status to other drugs, medicaments and biological substances; Z91.030 Bee allergy status
CPT/HCPCS: 36415; 80053; 85025; 95816; 96360; 96361; 99285

== ENCOUNTER 2022-05-18 07:37 | Inpatient (IN) | payer OTHER ==
[2022-05-18] MEDS ORDERED: levETIRAcetam IV 1,500 MG in SALINE 1 100ML.BAG IVPB STA (07:43)
[2022-05-18] MEDS ORDERED: SODIUM CHLORIDE 0.9% 1,000 ML IV ONE ×2 (07:43→10:04)
--- NOTE | 2022-05-18 07:59 | ED ---
General Adult HPI - General Stated complaint: seizure Time Seen by Provider: 05/18/22 07:37 Source: EMS, RN notes reviewed, old records reviewed - History of Present Illness Initial comments: This is a 27-year-old male who presents emergency department with past medical history significant for seizures. Patient had 3 seizures this morning lasting about a minute a piece prior to EMS arrival. When EMS arrived patient was posti ctal any had a fourth seizure. EMS administered 5 of Versed IV at the time of administration the patient had already stopped seizing. Patient is on seizure medications and according to family the patient takes the medications as prescribed. No family or caregivers with the patient at this time so no further history is available - Related Data Previous Rx's Medication Instructions Recorded Lacosamide [Vimpat] 100 mg PO BID #60 tablet 04/05/22 Allergies Allergy/AdvReac Type Severity Reaction Status Date / Time bee venom protein (honey bee) Allergy Anaphylaxis Verified 05/18/22 09:16 CITRAMALIC ACID Allergy Redness, Uncoded 05/18/22 09:16 dizzy Review of Systems ROS Statement: Those systems with pertinent positive or pertinent negative responses have been documented in the HPI. ROS Other: All systems not noted in ROS Statement are negative. Past Medical History Past Medical History: Seizure Disorder History of Any Multi-Drug Resistant Organisms: None Reported Past Surgical History: No Surgical Hx Reported Additional Past Surgical History / Comment(s): wisdom teeth extraction, facial Past Psychological History: ADD/ADHD, Anxiety, Bipolar, Depression Smoking Status: Never smoker Past Alcohol Use History: None Reported Past Drug Use History: Marijuana General Exam - General Exam Comments Initial Comments: GENERAL: Patient is well-developed and well-nourished. Patient is nontoxic and well- hydrated and is in no acute distress. ENT: Neck is soft and supple. No significant lymphadenopathy is noted. Oropharynx is clear. Moist mucous membranes. Neck has full range of motion without eliciting any pain. EYES: The sclera were anicteric and conjunctiva were pink and moist. Extraocular movements were intact and pupils were equal round and reactive to light. Eyelids were unremarkable. PULMONARY: Unlabored respirations. Good breath sounds bilaterally. No audible rales rhonchi or wheezing was noted. CARDIOVASCULAR: There is a regular rate and rhythm without any murmurs gallops or rubs. ABDOMEN: Soft and nontender with normal bowel sounds. SKIN: Skin is clear with no lesions or rashes and otherwise unremarkable. NEUROLOGIC: Patient is post ictal at this time. And he also has had 5 mg of Versed. MUSCULOSKELETAL: Normal extremities with adequate strength and full range of motion. LYMPHATICS: No significant lymphadenopathy is noted PSYCHIATRIC: Normal psychiatric evaluation. Course Vital Signs 05/18/22 07:43 Temperature 97.6 F Pulse Rate 98 Respiratory 24 Rate Blood Pressure 168/88 O2 Sat by Pulse 94 L Oximetry Medical Decision Making - Medical Decision Making Family called the nurse at about 940 and indicated to the nurse that the patient has been out of this seizure medications for a week. Patient was given Keppra in the emergency department 150 mg. Patient remained post ictal but was becoming more awake. Patient's bicarb was initially 5 I had an ABG done at that time after the patient started received some fluids it increased to 17. At this point in time I felt the patient needed to be admitted since he had 4 seizures today. I spoke with [facility] stay agreed to admit the patient I admitted the patient I wrote admitting orders. I consult the neurology - Lab Data Result diagrams: 05/18/22 07:59 05/18/22 07:59 Lab Results 05/18/22 05/18/22 05/18/22 Range/Units 07:59 07:59 08:42 WBC 20.5 H (3.8-10.6) k/uL RBC 5.62 (4.30-5.90) m/uL Hgb 16.5 (13.0-17.5) gm/dL Hct 53.4 H (39.0-53.0) % MCV 95.0 D (80.0-100.0) fL MCH 29.3 (25.0-35.0) pg MCHC 30.9 L (31.0-37.0) g/dL RDW 12.8 (11.5-15.5) % Plt Count 422 (150-450) k/uL MPV 7.7 Neutrophils % (Manual) 62 % Band Neuts % (Manual) 1 % Lymphocytes % (Manual) 28 % Monocytes % (Manual) 9 % Neutrophils # (Manual) 12.90 H (1.3-7.7) k/uL Lymphocytes # (Manual) 5.74 H (1.0-4.8) k/uL Monocytes # (Manual) 1.85 H (0-1.0) k/uL Nucleated RBCs 0 (0-0) /100 WBC Manual Slide Review Performed Hypochromasia Marked Sample Site ABG pH (7.35-7.45) ABG pCO2 (35-45) mmHg ABG pO2 (83-108) mmHg ABG HCO3 (21-25) mmol/L ABG Total CO2 (19-24) mmol/L ABG O2 Saturation (94-97) % ABG Base Excess mmol/L Telly Test FiO2 % Sodium 142 (137-145) mmol/L Potassium 4.6 (3.5-5.1) mmol/L Chloride 108 H (98-107) mmol/L Carbon Dioxide <5 L* (22-30) mmol/L Anion Gap mmol/L BUN 16 (9-20) mg/dL Creatinine 1.33 H (0.66-1.25) mg/dL Est GFR (CKD-EPI)AfAm 83 (>60 ml/min/1.73 sqM) Est GFR (CKD-EPI)NonAf 72 (>60 ml/min/1.73 sqM) Glucose 247 H (74-99) mg/dL Calcium 8.7 (8.4-10.2) mg/dL Magnesium 2.6 H (1.6-2.3) mg/dL Total Bilirubin 0.4 (0.2-1.3) mg/dL AST 41 (17-59) U/L ALT 57 H (4-49) U/L Alkaline Phosphatase 70 (38-126) U/L Total Protein 7.9 (6.3-8.2) g/dL Albumin 5.5 H (3.5-5.0) g/dL Valproic Acid <10.0 ug/mL Serum Alcohol <10 mg/dL 05/18/22 Range/Units 08:45 WBC (3.8-10.6) k/uL RBC (4.30-5.90) m/uL Hgb (13.0-17.5) gm/dL Hct (39.0-53.0) % MCV (80.0-100.0) fL MCH (25.0-35.0) pg MCHC (31.0-37.0) g/dL RDW (11.5-15.5) % Plt Count (150-450) k/uL MPV Neutrophils % (Manual) % Band Neuts % (Manual) % Lymphocytes % (Manual) % Monocytes % (Manual) % Neutrophils # (Manual) (1.3-7.7) k/uL Lymphocytes # (Manual) (1.0-4.8) k/uL Monocytes # (Manual) (0-1.0) k/uL Nucleated RBCs (0-0) /100 WBC Manual Slide Review Hypochromasia Sample Site rrad ABG pH 7.28 L (7.35-7.45) ABG pCO2 36 (35-45) mmHg ABG pO2 67 L (83-108) mmHg ABG HCO3 17 L (21-25) mmol/L ABG Total CO2 18 L (19-24) mmol/L ABG O2 Saturation 91.5 L (94-97) % ABG Base Excess -9.9 mmol/L Telly Test Yes FiO2 21 % Sodium (137-145) mmol/L Potassium (3.5-5.1) mmol/L Chloride (98-107) mmol/L Carbon Dioxide (22-30) mmol/L Anion Gap mmol/L BUN (9-20) mg/dL Creatinine (0.66-1.25) mg/dL Est GFR (CKD-EPI)AfAm (>60 ml/min/1.73 sqM) Est GFR (CKD-EPI)NonAf (>60 ml/min/1.73 sqM) Glucose (74-99) mg/dL Calcium (8.4-10.2) mg/dL Magnesium (1.6-2.3) mg/dL Total Bilirubin (0.2-1.3) mg/dL AST (17-59) U/L ALT (4-49) U/L Alkaline Phosphatase (38-126) U/L Total Protein (6.3-8.2) g/dL Albumin (3.5-5.0) g/dL Valproic Acid ug/mL Serum Alcohol mg/dL Critical Care Time Critical Care Time: Yes Total Critical Care Time: 35 Disposition Clinical Impression: Status epilepticus, Noncompliance with medication regimen Disposition: ADMITTED IP TO THIS [facility] Instructions (If sedation given, give patient instructions): Seizure/Epilepsy Discharge Instructions & Follow-Up Referrals: Bernardo Lee DO [Primary Care Provider] - 1-2 days Time of Disposition: 09:44
[2022-05-18 08:11] LABS: HCT 53.4 % (39.0-53.0); HGB 16.5 gm/dL (13.0-17.5); Hypochromasia Marked; MCH 29.3 pg (25.0-35.0); MCHC 30.9 g/dL (31.0-37.0); Mean Platelet Volume 7.7; Platelet Count 422 k/uL (150-450); RBC 5.62 m/uL (4.30-5.90); RDW 12.8 % (11.5-15.5); WBC 20.5 k/uL (3.8-10.6)
[2022-05-18 08:27] LABS: AST 41 U/L (17-59); African American GFR (CKD) 83 (>60 ml/min/1.73 sqM); Albumin 5.5 g/dL (3.5-5.0); Alkaline Phosphatase 70 U/L (38-126); Blood Urea Nitrogen 16 mg/dL (9-20); Calcium 8.7 mg/dL (8.4-10.2); Chloride 108 mmol/L (98-107); Glucose 247 mg/dL (74-99); Magnesium 2.6 mg/dL (1.6-2.3); Non-African American GFR(CKD) 72 (>60 ml/min/1.73 sqM); Potassium 4.6 mmol/L (3.5-5.1); Sodium 142 mmol/L (137-145); Total Bilirubin 0.4 mg/dL (0.2-1.3); Total Protein 7.9 g/dL (6.3-8.2)
[2022-05-18 08:30] LABS: Carbon Dioxide <5 mmol/L (22-30)
[2022-05-18 08:50] LABS: ALT 57 U/L (4-49)
[2022-05-18 09:06] LABS: ABG Base Excess -9.9 mmol/L; ABG HCO3 17 mmol/L (21-25); ABG Oxygen Saturation 91.5 % (94-97); ABG PCO2 36 mmHg (35-45); ABG PH 7.28 (7.35-7.45); ABG PO2 67 mmHg (83-108); ABG TCO2 18 mmol/L (19-24); Allen Test Performed? Yes
[2022-05-18 09:15] LABS: Band Neutrophils % 1 %; Lymphocytes # (M) 5.74 k/uL (1.0-4.8); Monocytes # (M) 1.85 k/uL (0-1.0); Neutrophils % (M) 62 %; Nucleated Red Blood Cells 0 /100 WBC (0-0); Total Cells Counted 100
[2022-05-18 09:37] LABS: Valproic Acid (Depakene) <10.0 ug/mL
[2022-05-18 10:19] LABS: Amphetamine Screen,Urine Not Detected (NotDetected); Barbiturate Screen,Urine Not Detected (NotDetected); Benzodiazepines Screen,Urine Not Detected (NotDetected); Cocaine Screen,Urine Not Detected (NotDetected); Methadone Screen, Urine Not Detected (NotDetected); Opiate Screen,Urine Not Detected (NotDetected); Oxycodone Screen, Urine Not Detected (NotDetected); Phencyclidine Screen,Urine Not Detected (NotDetected); Tricyclic Antidepressant,Urine Not Detected (NotDetected); Urn Cannabinoid Scrn Detected (NotDetected)
[2022-05-18] MEDS ORDERED: ONDANSETRON 4 MG/2 ML VIAL IVP STA (11:22)
[2022-05-18] MEDS ORDERED: LORazepam 2 MG/ML INJ IV PRN (12:04)
--- NOTE | 2022-05-18 12:04 | P.EN ---
i came to see the pt twice in emergency room 5, he was not in the room as per legal administrative secretary at the [employer], he went to EEG, We will follow up with him
--- NOTE | 2022-05-18 13:17 | P.CNNES ---
History of Present Illness Consult date: 05/18/22 Requesting physician: Nick Powers Reason for Consult: Status epilepticus History of Present Illness: Patient is a 27-year-old male came to the hospital by ambulance today at 7:37 AM for recurrent seizures. Patient was seen in the EEG department. Patient has been vomiting frequently. He is also groggy, postictal, not providing much history. He states that he ran out of his seizure medication Vimpat 1 week ago. He claims that the medication was not helping either. Patient states that his seizures are stress related, as he has not seen his son for last 6 weeks. His ex-, does not let him see his children, which makes him stressed out and get seizure. He does see his daughter weekly. Patient at present admits to having headache. He could not tell me how many seizures he had since last admission on 04/04/2022. He could not tell me how many aura as he had. Patient apparently did bite his tongue with the seizures. As per EMS flow sheet when they arrived, roommate mentioned that patient had 3 seizures prior to their arrival and that the patient is believed to have fallen from a seated position to the floor where it is unknown if he struck his head. Patient was post ictal on their arrival. He was mildly combative and transferred downstairs with stair chair and noted on the stretcher. He started having another seizure, witnessed by EMS. Patient was given 5 mg of Versed IV which stopped the seizure. Patient's blood pressure was 1:30/88% 140, respiration 28 and saturation 94%. Blood sugar 160 mg/dL. Patient's blood test shows WBC 20.5 hemoglobin 16.5, platelets 422. ABG with pH 7.28, pO2 67 and pCO2 36. Sodium and potassium are normal. His carbon dioxide is <5. Renal functions are normal. AST is 41, ALT 57. Urine drug screen positive for marijuana. Blood ankle level is negative. Patient's last hemoglobin A1c 5.5 on 03/06/2022. Patient was seen by myself on 04/04/2022 when he has mentioned about having seizures for last 2-1/2 years, came with breakthrough seizure. He believes the seizures are related to the stress. He usually gets an aura consisting of tasting iron/copper along with lightheadedness. As soon as he gets this sensation, he feels need to sit down. Sometimes these aura leads to grand mal seizures. He loses awareness, loses track of what he was doing. Patient had an EEG on 04/04/2022, which was abnormal due to intermittent focal slowing with sharp waves over the left temporal region. This is suggestive of focal cortical neuronal dysfunction with underlying cortical irritability and tendency for seizures. Clinical correlation is recommended. Suggest prolonged EEG for further evaluation. Patient has previously failed Depakote dose up to 1500 mg a day, and developed anger issues with Keppra. Review of Systems ROS unobtainable: due to mental status Constitutional: Reports poor appetite, Denies chills, Denies fever Eyes: denies blurred vision, denies pain Ears, nose, mouth and throat: Reports headache, Denies sore throat Cardiovascular: Denies chest pain, Denies shortness of breath Respiratory: Denies cough Gastrointestinal: Reports coffee ground emesis, Reports nausea, Reports vomiting Musculoskeletal: Denies myalgias Integumentary: Denies pruritus, Denies rash Neurological: Reports convulsions, Reports seizures, Denies lack of coordination, Denies numbness, Denies weakness Psychiatric: Reports anxiety, Reports depression Endocrine: Denies fatigue, Denies weight change Past Medical History Past Medical History: Seizure Disorder History of Any Multi-Drug Resistant Organisms: None Reported Past Surgical History: No Surgical Hx Reported Additional Past Surgical History / Comment(s): wisdom teeth extraction, facial Past Psychological History: ADD/ADHD, Anxiety, Bipolar, Depression Smoking Status: Never smoker Past Alcohol Use History: None Reported Past Drug Use History: Marijuana Medications and Allergies Home Medications Medication Instructions Recorded Confirmed Type Lacosamide [Vimpat] 100 mg PO BID #60 tablet 04/05/22 05/18/22 Rx Allergies Allergy/AdvReac Type Severity Reaction Status Date / Time bee venom protein (honey bee) Allergy Anaphylaxis Verified 05/18/22 09:16 CITRAMALIC ACID Allergy Redness, Uncoded 05/18/22 09:16 dizzy Physical Examination - Vital Signs Vital Signs: Vital Signs Temp Pulse Resp BP Pulse Ox 05/18/22 07:43 97.6 F 98 24 168/88 94 L Intake and Output 05/17/22 05/18/22 05/18/22 22:59 06:59 14:59 Other: Weight 112.491 kg Patient is a young male, who is groggy, postictal at this time. He has been vomiting frequently. Patient is groggy, postictal. He keeps his eyes closed. Speech and language functions are normal. Patient can name and repeat very well. No aphasia or dysarthria. Attention, concentration and fund of knowledge is limited due to postictal state. On cranial nerve examination, pupils are equal, round and reacting to light, visual saini are full on confrontation, with no neglect on double simultaneous stimulation Extraocular muscles are intact with no nystagmus. Face is symmet hemal, tongue protrudes to the midline. Palatal elevation and sensation normal, hearing and shoulder shrug normal, facial sensation normal. He has evidence of tongue bite carlyn on the right side. On muscle strength testing, there is no pronator drift and the strength is normal in arms and legs distally and proximally. Deep tendon reflexes are symmetric 1+ to 2+ and plantars are withdrawal bilat erally. Sensory to touch is equal with no neglect on double simultaneous stimulation. Cerebellar function showed no ataxia for [id number] testing. No dysdiadochokinesia. Tone and bulk of muscles normal. Gait deferred.. On general examination, there is no carotid bruit or murmur, S1-S2 audible. Chest is clear on consultation. Abdomen is soft nontender. No organomegaly, bowel sounds present. Peripheral pulses are present. No edema. Results - Laboratory Findings CBC and BMP: 05/18/22 07:59 05/18/22 07:59 Abnormal Lab Findings: Abnormal Labs 05/18/22 05/18/22 05/18/22 07:59 07:59 08:42 WBC 20.5 H Hct 53.4 H MCHC 30.9 L Neutrophils # (Manual) 12.90 H Lymphocytes # (Manual) 5.74 H Monocytes # (Manual) 1.85 H ABG pH ABG pO2 ABG HCO3 ABG Total CO2 ABG O2 Saturation Chloride 108 H Carbon Dioxide <5 L* Creatinine 1.33 H Glucose 247 H Magnesium 2.6 H ALT 57 H Albumin 5.5 H U Marijuana (THC) Screen Detected H 05/18/22 08:45 WBC Hct MCHC Neutrophils # (Manual) Lymphocytes # (Manual) Monocytes # (Manual) ABG pH 7.28 L ABG pO2 67 L ABG HCO3 17 L ABG Total CO2 18 L ABG O2 Saturation 91.5 L Chloride Carbon Dioxide Creatinine Glucose Magnesium ALT Albumin U Marijuana (THC) Screen Assessment and Plan Assessment: * Seizure disorder, came with breakthrough seizures. * Medication noncompliance. Patient ran out of Vimpat 1 week ago. * Marijuana use. * Nausea vomiting, unclear etiology. Plan: * Patient has received Keppra 1 g in the ER. Will stop Keppra, as patient previously had side effects from Keppra. Resume Vimpat 100 mg twice a day. * A prolonged 2.5 hours EEG was initiated. Patient vomited 2-3 times during the EEG, and would not cooperate for prolonged testing. The routine EEG that was performed was technically limited because of a lot of movement artifact. Possible bitemporal slowing left more than right was seen. No clearcut ep ileptiform activity was seen on this very technically limited study. * MRI of the brain evaluate for cause of seizures. * Evaluation of nausea vomiting, metabolic derangement, we will defer to internal medicine. * Patient informed of [place] state law of not driving unless seizure free for 6 months, climbing ladders, operate dangerous machinery or unsupervised swimming. * Patient recommended to follow up with neurologist as an outpatient. Addendum: MRI of the brain is normal. No intracranial mass or acute/subacute infarct. I personally reviewed MRI, agree with the findings. Patient clear for discharge from neurology standpoint on Vimpat 100 mg twice a day and to follow-up with a neurologist. Dr. Geoffrey Laura will be available for any neurological concerns starting from tomorrow morning.
[2022-05-18] MEDS: LACOSAMIDE IV 100 MG in SODIUM CHLORIDE 0.9% 50 ML IVPB SCH ×2 (14:14→21:35)
[2022-05-18] MEDS ORDERED: LORazepam 1 MG/0.5 ML VIAL IV PRN (14:15)
--- NOTE | 2022-05-18 14:52 | P.HPIM ---
History of Present Illness This is a pleasant 27 years old female with past medical history of seizure disorder, bipolar and depression Patient was in the hospital last month for seizure also. He was discharge on Vimpat 100 mg twice a day. However patient presents with recurrent seizures. Patient says that he has not been taking his Vimpat for about a week. Patient says that he could not afford it. Patient could not remember what happened think she remembers that he woke up in the hospital. 5 at bedside and states that his roommate noticed that he had 3 seizure, one of them lasted more than 5 minutes during this time he had urine incontinence and bit his tongue. By the EMS came to pick him up he had a fourth seizure. Patient he has some headache but he denies any neck stiffness. No chest pain or dyspnea. No abdominal pain or nausea vomiting. No diarrhea. No fever. Patient looks looks side and with poor interaction. He says that he has history of bipolar. And he denies suicidal thoughts currently or before. However states that patient had suicidal ideation or attempt about 1.5 months ago and the thinks acid should be at bedside. Discussed with staff. Vitals stable, blood pressure 160/88. Patient is afebrile Labs showing leukocytosis with WBCs 20.5. HE was 13.4 which slightly elevated last month 10-2-22, lymphocyte and was also elevated as well as neutrophil. PH is 7.2, pCO2 normal 36 oxygen is low at 67 Dear patient with carbon dioxide less than 5, creatinine 1.3. Urine drug screen is positive for marijuana. Valproic acid less than 10. Alcohol less than 10. And emergency room received Keppra 1500 mg 1 and normal saline 75 mL/h and the neurologist consulted with EEG is requested as well. Review of Systems Review of systems CONSTITUTIONAL: No fever, no malaise, no fatigue. HEENT: No recent visual problems or hearing problems. Denied any sore throat. CARDIOVASCULAR: No orthopnea, PND, no palpitations, no syncope. PULMONARY: No shortness of breath, no cough, no hemoptysis. GASTROINTESTINAL: No diarrhea, no abdominal pain. Normoactive bowel sounds. NEUROLOGICAL: No headaches, no weakness, no numbness. HEMATOLOGICAL: Denies any bleeding or petechiae. GENITOURINARY: Denies any burning micturition, frequency, or urgency. MUSCULOSKELETAL/RHEUMATOLOGICAL: Denies any joint pain, swelling, or any muscle pain. ENDOCRINE: Denies any polyuria or polydipsia. Past Medical History Past Medical History: Seizure Disorder History of Any Multi-Drug Resistant Organisms: None Reported Past Surgical History: No Surgical Hx Reported Additional Past Surgical History / Comment(s): wisdom teeth extraction, facial Past Psychological History: ADD/ADHD, Anxiety, Bipolar, Depression Smoking Status: Never smoker Past Alcohol Use History: None Reported Past Drug Use History: Marijuana Medications and Allergies Home Medications Medication Instructions Recorded Confirmed Type Lacosamide [Vimpat] 100 mg PO BID #60 tablet 04/05/22 05/18/22 Rx Allergies Allergy/AdvReac Type Severity Reaction Status Date / Time bee venom protein (honey bee) Allergy Anaphylaxis Verified 05/18/22 09:16 CITRAMALIC ACID Allergy Redness, Uncoded 05/18/22 09:16 dizzy Physical Exam Vitals: Vital Signs Temp Pulse Resp BP Pulse Ox 05/18/22 13:26 98.7 F 85 20 131/80 99 05/18/22 07:43 97.6 F 98 24 168/88 94 L Intake and Output 05/17/22 05/18/22 05/18/22 22:59 06:59 14:59 Other: Weight 112.491 kg -GENERAL: The patient is alert and oriented x3, not in any acute distress. Well developed, well nourished. Patient looks well controlled with poor interaction -HEENT: Pupils are round and equally reacting to light. EOMI. No scleral icterus . No conjunctival pallor. Normocephalic, atraumatic. No pharyngeal erythema. No thyromegaly. tongue bite CARDIOVASCULAR: S1 and S2 present. No murmurs, rubs, or gallops. PULMONARY: Chest is clear to auscultation, no wheezing or crackles. ABDOMEN: Soft, nontender, nondistended, normoactive bowel sounds. No palpable organomegaly. MUSCULOSKELETAL: No joint swelling or deformity. EXTREMITIES: No cyanosis, clubbing, or pedal edema. NEUROLOGICAL: Gross neurological examination did not reveal any focal deficits. SKIN: No rashes. no petechiae. Results CBC & Chem 7: 05/18/22 07:59 05/18/22 07:59 Labs: Abnormal Lab Results - Last 24 Hours (Table) 05/18/22 05/18/2222 Range/Units 07:59 07:59 08:42 WBC 20.5 H (3.8-10.6) k/uL Hct 53.4 H (39.0-53.0) % MCHC 30.9 L (31.0-37.0) g/dL Neutrophils # (Manual) 12.90 H (1.3-7.7) k/uL Lymphocytes # (Manual) 5.74 H (1.0-4.8) k/uL Monocytes # (Manual) 1.85 H (0-1.0) k/uL ABG pH (7.35-7.45) ABG pO2 (83-108) mmHg ABG HCO3 (21-25) mmol/L ABG Total CO2 (19-24) mmol/L ABG O2 Saturation (94-97) % Chloride 108 H (98-107) mmol/L Carbon Dioxide <5 L* (22-30) mmol/L Creatinine 1.33 H (0.66-1.25) mg/dL Glucose 247 H (74-99) mg/dL Magnesium 2.6 H (1.6-2.3) mg/dL ALT 57 H (4-49) U/L Albumin 5.5 H (3.5-5.0) g/dL U Marijuana (THC) Screen Detected H (NotDetected) 05/18/22 Range/Units 08:45 WBC (3.8-10.6) k/uL Hct (39.0-53.0) % MCHC (31.0-37.0) g/dL Neutrophils # (Manual) (1.3-7.7) k/uL Lymphocytes # (Manual) (1.0-4.8) k/uL Monocytes # (Manual) (0-1.0) k/uL ABG pH 7.28 L (7.35-7.45) ABG pO2 67 L (83-108) mmHg ABG HCO3 17 L (21-25) mmol/L ABG Total CO2 18 L (19-24) mmol/L ABG O2 Saturation 91.5 L (94-97) % Chloride (98-107) mmol/L Carbon Dioxide (22-30) mmol/L Creatinine (0.66-1.25) mg/dL Glucose (74-99) mg/dL Magnesium (1.6-2.3) mg/dL ALT (4-49) U/L Albumin (3.5-5.0) g/dL U Marijuana (THC) Screen (NotDetected) Assessment and Plan Assessment: recurrent seizure suspicious for status epilepticus, Patient has history of seizure bipolar, suspicion for suicidal ideation Nonadherence to medication secondary to financial issues Mild acute kidney injury leukocytosis could be reactive elevated glucose Metabolic acidosis Mild acute kidney injury Leukocytosis, could be reactive Bipolar, anxiety and depression Substance abuse with marijuana Plan: Continue with Ativan when necessary Neurologist to assess his seizure activity and medication EEG requesting and result is pending. MRI of the brain performed neurologist. Neurologist recommended to resume Vimpat We'll consult psychiatrist We'll keep sitter at bedside with suicidal precautions. Patient cannot leave AMA drill cleared by psychiatrist. He will try to leave AMA then he needs to be petitioned Continue with normal saline 75 mL/h and follow-up creatinine with no improvement then we'll consider nephrology consult Monitor creatinine, requested for diagnosis and continue with gentle hydration Check hemoglobin A1c Monitor WBC and check pro-calcitonin consult briefcase sewer Check KUB for leukocytosis and vomiting Labs and medication were reviewed.. Continue same treatment. Continue with symptomatic treatment. Resume home medication. Monitor labs and vitals. DVT a nd GI prophylaxis. Further recommendations as per clinical course of the patient DVT prophylaxis: Mechanical now and we'll assess as per clinical review and after neurologist see the patient GI Prophylaxis: Pepcid Prognosis is guarded
[2022-05-18 15:22] VITALS: RESP 18
--- NOTE | 2022-05-18 15:53 | XR ---
EXAMINATION TYPE: XR KUB portable DATE OF EXAM: 05/18/2022 2:59 PM CLINICAL HISTORY: Vomiting. TECHNIQUE: Two supine KUB images of the abdomen are obtained. COMPARISON: CT abdomen and pelvis 2017. FINDINGS: Gas seen in nondistended stomach. Some paucity of bowel gas overall. Some scattered gas in nondistended small and large bowel loops. No suspicious calcifications. The lung bases are not includ ed. Visualized osseous structures are intact. IMPRESSION: Overall nonspecific strongly favor nonobstructive bowel gas pattern.
--- NOTE | 2022-05-18 17:20 | MR ---
EXAMINATION TYPE: MR brain wo con DATE OF EXAM: 05/18/2022 5:00 PM COMPARISON: CT 04/03/2022. CLINICAL INDICATION:Male, 27 years old with history of Seizure disorder; TECHNIQUE: Multi planar, multi sequence imaging was performed through the brain including: T1, T2, In version recovery, Diffusion weighted imaging, and gradient echo imaging. No gadolinium was given. FINDINGS: Motion artifact limits evaluation. The de la torre-white junctions, ventricular system, and cisterns appear unremarkable. Midline structures sh ow no abnormality. Diffusion-weighted imaging shows no evidence of restricted diffusion. The suscepti bility weighted images do not reveal any evidence for micro-hemorrhage. The bone marrow signal is within normal limits. The paranasal sinuses and globes are unremarkable. IMPRESSION: Motion limited exam without evidence of intracranial mass or acute/subacute infarct.
[2022-05-18] MEDS ORDERED: ONDANSETRON 4 MG/2 ML VIAL IVP PRN (18:33)
--- NOTE | 2022-05-18 21:51 | EEG ---
ELECTROENCEPHALOGRAM REPORT PREAMBLE: This is a 27-year-old male with history of seizure disorder, came with status epilepticus. This study is performed to evaluate for any epileptiform activity. EEG FINDINGS: This is a 21-channel digital EEG recorded with video component, utilizing 10/20 international system with referential and bipolar montages. Background consists of well developed, well regulated moderate voltage activity in 9-10 hertz alpha. Background is posterior dominant and reactive to eye opening and closing. A lot of movement and myogenic activity was seen during this study. Bitemporal slowing, left more than right was possibly seen. No clear-cut focal or generalized epileptiform activity was seen. Different stages of sleep were not seen. IMPRESSION: This is a technically very limited EEG due to very frequent movement and myogenic artifact seen in almost all of the study. Bitemporal slowing, left more than right cannot be excluded. Suggest prolonged, sleep-deprived EEG, when patient is more cooperative. No electrographic seizures were recorded. MMODL / IJN: [id number] / [facility]ITALAshlee
[2022-05-19] MEDS ORDERED: FAMOTIDINE 20 MG/2 ML VIAL IV SCH (09:00)
[2022-05-19] MEDS ORDERED: HEPARIN SODIUM,PORCINE/PF 5,000 UNIT/0.5 ML SYRINGE SQ SCH (09:00)
[2022-05-19] MEDS: LACOSAMIDE IV 100 MG in SODIUM CHLORIDE 0.9% 50 ML IVPB SCH (09:26)
[2022-05-19 10:42] LABS: Basophils # (A) 0.03 X 10*3/uL (0.00-0.10); Basophils % (A) 0.2 %; Eosinophils # (A) 0.01 X 10*3/uL (0.04-0.35); Eosinophils % (A) 0.1 %; HCT 43.4 % (39.6-50.0); HGB 14.5 g/dL (13.0-17.0); Immature Grans, Automated 0.3 %; Lymphocytes # (A) 2.14 X 10*3/uL (0.90-5.00); Lymphocytes % (A) 17.8 %; MCH 28.7 pg (27.0-32.0); MCHC 33.4 g/dL (32.0-37.0); MCV 85.8 fL (80.0-97.0); Mean Platelet Volume 8.9 fL (9.5-12.2); Monocytes # (A) 0.95 X 10*3/uL (0.20-1.00); Monocytes % (A) 7.9 %; NRBC Per 100 WBC 0 /100 WBCS (0.0-0.0); Neutrophils # (A) 8.88 X 10*3/uL (1.80-7.70); Neutrophils % (A) 73.7 %; Platelet Count 267 X 10*3/uL (140-440); RBC 5.06 X 10*6/uL (4.40-5.60); RDW 13.2 % (11.5-14.5); WBC 12.05 X 10*3/uL (4.50-10.00)
[2022-05-19 10:54] LABS: African American GFR (CKD) 78.1 (60.0-200.0); Anion Gap 13.3 mmol/L (10.00-18.00); BUN/Creat Ratio 12.29 Ratio (12.00-20.00); Blood Urea Nitrogen 17.2 mg/dL (9.0-27.0); Calcium 8.9 mg/dL (8.7-10.3); Carbon Dioxide 18.7 mmol/L (20.0-27.5); Magnesium 2.6 mg/dL (1.5-2.4); Non-African American GFR(CKD) 67.4 (60.0-200.0); Potassium 4.2 mmol/L (3.5-5.5)
[2022-05-19 11:44] VITALS: BP 141/74; PULSE 71; TEMP 98.6
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
--- NOTE | 2022-05-19 13:56 | P.DS ---
Providers Date of admission: 05/18/22 10:05 Attending physician: Cassandra Humphries Consults: 05/18/22 10:04 Consult Physician Urgent Consulting Provider: Zaria Kothari Consult Reason/Comments: Status epilepticus Do you want consulting provider notified?: Yes 05/18/22 14:27 Consult Physician Urgent Consulting Provider: Bernardo Hutchison Consult Reason/Comments: bipolar ,suicidal Do you want consulting provider notified?: Yes [facility] Course: Please note patient was not discharged but he left AMA Diagnoses: recurrent seizure secondary to noncompliance to medications Patient has history of seizure none compliance to medication and to the medical recommendations bipolar,no suicidal ideationThe patient was cleared by psychiatrist Nonadherence to medication secondary to financial issues Mild acute kidney injury leukocytosis could be reactive elevated glucose Metabolic acidosis Mild acute kidney injury Leukocytosis, could be reactive Bipolar, anxiety and depression Substance abuse with marijuana Hospital course: This is a pleasant 27 years old female with past medical history of seizure disorder, bipolar and depression Patient was in the hospital last month for seizure also. He was discharge on Vimpat 100 mg twice a day. However patient presents with recurrent seizures. Patient says that he has not been taking his Vimpat for about a week. Patient says that he could not afford it. Patient has been evaluated by neurologist last recommended to start him back on Vimpat, EEG and MRI of the brain were unremarkable for acute process. Vimpat was instructed and tolerated well by the patient. However patient today is fully awake and oriented, he is calm, no more seizure. He denies any specific complaint. No headache or dizziness. No weakness or numbness. No double vision or slurred speech. No chest pain or dyspnea. No GI or urinary complaints. Patient states that his back to normal self. However patient does not want to stay in the hospital and he wants to leave AMA. I talked to the patient about the risk of leaving AGAINST MEDICAL ADVICE and not taking his medication. I explained for the patient clearly yesterday and today but not taking seizure medication can cause rebound seizure, status epilepticus and/or or organ damage and loss, he verbalized understanding and said it back to me. However he still doesn't want to stay in the hospital. Based upon my evaluation patient has capacity to make medical decision and he shows understanding for his decisions. Patient says that he does not want to take the medication because of his financial problems and he wants his problems to be resolved now and he does not want to be wait until we work on them. I told patient uses any think I can do prostate to prevent him from leaving AMA and he requested Me fixing and his financial problems and now otherwise he will leave AMA. I explained to the patient's I will do everything within my capabi lity and the this will take some times. I talked to the nurse and the casey saw operator which came at bedside however patient still does not want to wait and wants to leave AMA. I discussed with the neurologist and said he can leave. Patient with a prescription for Vimpat. Paper prescription is provided for the patient at bedside and give to the bedside nurse. I told the patient but he looked not i nterested in taking the prescription. I explained for the patient that this Vimpat prescription dose not mean it will protect him from harm secondary for him leaving AMA . Also explained for the patient there were some concerns of infection secondary to leukocytosis and mildly elevated pro-calcitonin and we needs some workup to see if he has infection and the source of infection before prescribing antibiotics and again he does not want to wait and wants to leave AMA, risks and benefits alternatives are explained for him including but not limited to the risk of worsening infection, sepsis and/or . Again patient verbalized is willing to leave AMA despite all these risks. Yesterday patient was denying suicidal ideation however his /EX girlfriend at bedside stated that he had suicidal precautions about 1.5 months ago And therefore we called psychiatric consult. Patient still denying suicidal ideation today, discussed the case with the psychiatrist dr hutchison and according to him pt does not meet criteria for inpatient psychiatric admission, and he discontinued the bedside sitter and suicidal precautions. Thereafter we cannot hold the patient against his will despite my efforts more than once explain all his medical problems and risk. However patient was angry looking because of his financial problems and because of stressful situation with his family and children. Patient stated that he will leave AMA better we did or said Patient was instructed to come back to the hospital if he change his mind he develops any symptoms. Also was instructed to follow up with his PCP as soon as possible Physical exam prior to leaving ama Gen: patient is a AAOx3, no distress CVS: S1-S2, RRR, no murmur Lungs: B/L CTA, no wheezing Abdomen: soft, no distention, no tenderness, positive bowel sounds Extremity: no leg edema or induration Time spent more than 35 minutes Patient Condition at Discharge: Stable Plan - Discharge Summary Discharge Rx Participant: No New Discharge Prescriptions: Continue Lacosamide [Vimpat] 100 mg PO BID 30 Days #60 tablet Discharge Medication List Lacosamide [Vimpat] 100 mg PO BID 30 Days #60 tablet 05/19/22 [Rx] Follow up Appointment(s)/Referral(s): Bernardo Lee DO [Primary Care Provider] - 1-2 days Patient Instructions/Handouts: Seizure/Epilepsy Discharge Instructions & Follow-Up Discharge Disposition: Left Against Medical Advice
== END 2022-05-19 13:06 | disposition left against medical advice (07) | DRG 101 ==
LOC: EC 07:37 → 5NMEDONC 10:05
PROVIDERS: ADMIT Hospitalist; ATTEND Hospitalist
DX: G40.401 Other generalized epilepsy and epileptic syndromes, not intractable, with status epilepticus (principal); E87.20 Acidosis, unspecified; N17.9 Acute kidney failure, unspecified; F31.9 Bipolar disorder, unspecified; Z28.310 Unvaccinated for COVID-19; Z91.138 Patient's unintentional underdosing of medication regimen for other reason; R73.9 Hyperglycemia, unspecified; R32 Unspecified urinary incontinence; F12.10 Cannabis abuse, uncomplicated; D72.829 Elevated white blood cell count, unspecified; F90.9 Attention-deficit hyperactivity disorder, unspecified type; F41.9 Anxiety disorder, unspecified; Z79.899 Other long term (current) drug therapy; Z59.86 Financial insecurity; Z88.8 Allergy status to other drugs, medicaments and biological substances; Z91.030 Bee allergy status
CPT/HCPCS: 36415; 36600; 70551; 74018; 80048; 80053; 80164; 80306; 80320; 82805; 83036; 83735; 84145; 85025; 95816; 96361; 96365; 96374; 96375; 99291

== ENCOUNTER 2022-08-05 07:20 | Emergency (ER) | payer OTHER ==
[2022-08-05] MEDS ORDERED: SODIUM CHLORIDE 0.9% 1,000 ML IV STA (07:26)
--- NOTE | 2022-08-05 07:27 | ED ---
Seizure HPI - General Stated Complaint: seizure Time Seen by Provider: 08/05/22 07:26 Source: patient, RN notes reviewed Mode of arrival: ambulatory Limitations: no limitations - History of Present Illness Initial Comments: 27-year-old male presents emergency Department with chief complaint of seizure. Patient had 2 seizures while witnessed by family. Patient states he has long history of seizures he states is not any current medications he states that most medications make his seizures worse. Patient complains of mild headache he had no dramatic fall or injury to his head at this time. He does have bite jaimes on his tongue. Denies any other physical complaints. He states he does not see a neurologist as is too expensive. - Related Data Previous Rx's Medication Instructions Recorded Lacosamide [Vimpat] 100 mg PO BID 30 Days #60 tablet 05/19/22 Allergies Allergy/AdvReac Type Severity Reaction Status Date / Time bee venom protein (honey bee) Allergy Anaphylaxis Verified 08/05/22 07:33 citric acid Allergy Unknown Verified 08/05/22 07:33 CITRAMALIC ACID Allergy Redness, Uncoded 08/05/22 07:33 dizzy Review of Systems ROS Statement: Those systems with pertinent positive or pertinent negative responses have been documented in the HPI. ROS Other: All systems not noted in ROS Statement are negative. Past Medical History Past Medical History: Seizure Disorder History of Any Multi-Drug Resistant Organisms: None Reported Past Surgical History: No Surgical Hx Reported Additional Past Surgical History / Comment(s): wisdom teeth extraction, facial Past Anesthesia/Blood Transfusion Reactions: No Reported Reaction Past Psychological History: ADD/ADHD, Anxiety, Bipolar, Depression Smoking Status: Never smoker Past Alcohol Use History: None Reported Past Drug Use History: Marijuana General Exam General appearance: alert, in no apparent distress Head exam: Present: atraumatic, normocephalic, normal inspection Eye exam: Present: normal appearance, PERRL, EOMI. Absent: scleral icterus, conjunctival injection, periorbital swelling ENT exam: Present: normal exam, normal oropharynx, mucous membranes moist Neck exam: Present: normal inspection, full ROM. Absent: tenderness, meningismus, lymphadenopathy Respiratory exam: Present: normal lung sounds bilaterally. Absent: respiratory distress, wheezes, rales, rhonchi, stridor Cardiovascular Exam: Present: regular rate, normal rhythm, normal heart sounds. Absent: systolic murmur, diastolic murmur, rubs, gallop, clicks Neurological exam: Present: alert, oriented X3, CN II-XII intact, reflexes normal. Absent: motor sensory deficit Course Vital Signs 08/05/22 07:22 Temperature 97.9 F Pulse Rate 98 Respiratory 20 Rate Blood Pressure 131/80 O2 Sat by Pulse 97 Oximetry Medical Decision Making - Medical Decision Making Was pt. sent in by a medical professional or institution (, PA, SUPERVISOR BINDERY, urgent care, hospital, or senior care...) When possible be specific @ -No Did you speak to anyone other than the patient for history (EMS, parent, family, police, friend...)? What history was obtained from this source @ -EMS and from provided prehospital symptoms past medical history Did you review nursing and triage notes (agree or disagree)? Why? @ -I reviewed and agree with nursing and triage notes Were old charts reviewed (outside hosp., previous admission, EMS record, old EKG, old radiological studies, urgent care reports/EKG's, senior care records)? Report findings @ -No old charts were reviewed Differential Diagnosis (chest pain, altered mental status, abdominal pain women, abdominal pain men, vaginal bleeding, weakness, fever, dyspnea, syncope, headache, dizziness, GI bleed, back pain, seizure, CVA, palpatations, mental health)? @ -Seizure, dehydration, hyponatremia, hyperkalemia, hypomagnesemia, this is is not all-inclusive, EKG interpreted by me (3pts min.). @ -As above X-rays interpreted by me (1pt min.). @ -None done CT interpreted by me (1pt min.). @ -None done U/S interpreted by me (1pt. min.). @ -None done What testing was considered but not performed or refused? (CT, X-rays, U/S, labs)? Why? @ -Contenders CT though patient has no complaints of headache or head trauma What meds were considered but not given or refused? Why? @ -Considered antiepileptic medication the patient states it worsens his symptoms and he refuses Did you discuss the management of the patient with other professionals (professionals i.e. , GENE, SUPERVISOR BINDERY, lab, RT, psych nurse, child protective services social worker, business lawyer, teacher, president and chief operating officer, family preservation caseworker)? Give summary @ -No Was smoking cessation discussed for >3mins.? @ -No Was critical care preformed (if so, how long)? @ -No Were there social determinants of health that impacted care today? How? (Homelessness, low income, unemployed, alcoholism, drug addiction, transportation, low edu. Level, literacy, decrease access to med. care, residential, rehab)? @ -No Was there de-escalation of care discussed even if they declined (Discuss DNR or withdrawal of care, Hospice)? DNR status @ -No What co-morbidities impacted this encounter? (DM, HTN, Smoking, COPD, CAD, Cancer, CVA, ARF, Chemo, Hep., AIDS, mental health diagnosis, sleep apnea, morbid obesity)? @ -None Was patient admitted / discharged? Hospital course, mention meds given and route, prescriptions, significant lab abnormalities, going to OR and other pertinent info. @ -Patient is discharged in stable condition patient has normal laboratory studies he has a history of seizures refuses to be on medications. Patient advised to follow-up neurology. Undiagnosed new problem with uncertain prognosis? @ -No Drug Therapy requiring intensive monitoring for toxicity (Heparin, Nitro, Insulin, Cardizem)? @ -No Were any procedures done? @ -No Diagnosis/symptom? @ -Seizure Acute, or Chronic, or Acute on Chronic? @ -Acute on chronic Uncomplicated (without systemic symptoms) or Complicated (systemic symptoms)? @ -Uncomplicated Side effects of treatment? @ -No Exacerbation, Progression, or Severe Exacerbation? @ -No Poses a threat to life or bodily function? How? (Chest pain, [place], [place], pneumonia, PE, COPD, DKA, ARF, appy, cholecystitis, CVA, Diverticulitis, Homicidal, Suicid al, threat to staff... and all critical care pts) @ -No - Lab Data Result diagrams: 08/05/22 07:43 08/05/22 07:43 Lab Results 08/05/22 08/05/22 Range/Units 07:43 07:43 WBC 12.2 H (3.8-10.6) k/uL RBC 5.39 (4.30-5.90) m/uL Hgb 15.9 (13.0-17.5) gm/dL Hct 47.0 (39.0-53.0) % MCV 87.3 (80.0-100.0) fL MCH 29.6 (25.0-35.0) pg MCHC 33.9 (31.0-37.0) g/dL RDW 13.4 (11.5-15.5) % Plt Count 327 (150-450) k/uL MPV 7.3 Neutrophils % 83 % Lymphocytes % 12 % Monocytes % 3 % Eosinophils % 0 % Basophils % 0 % Neutrophils # 10.2 H (1.3-7.7) k/uL Lymphocytes # 1.5 (1.0-4.8) k/uL Monocytes # 0.4 (0-1.0) k/uL Eosinophils # 0.0 (0-0.7) k/uL Basophils # 0.0 (0-0.2) k/uL Sodium 138 (137-145) mmol/L Potassium 4.8 (3.5-5.1) mmol/L Chloride 108 H (98-107) mmol/L Carbon Dioxide 18 L (22-30) mmol/L Anion Gap 12 mmol/L BUN 18 (9-20) mg/dL Creatinine 0.85 (0.66-1.25) mg/dL Est GFR (CKD-EPI)AfAm >90 (>60 ml/min/1.73 sqM) Est GFR (CKD-EPI)NonAf >90 (>60 ml/min/1.73 sqM) Glucose 135 H (74-99) mg/dL Calcium 9.2 (8.4-10.2) mg/dL Magnesium 2.2 (1.6-2.3) mg/dL Total Bilirubin 0.6 (0.2-1.3) mg/dL AST 28 (17-59) U/L ALT 27 (4-49) U/L Alkaline Phosphatase 45 (38-126) U/L Total Protein 7.5 (6.3-8.2) g/dL Albumin 5.0 (3.5-5.0) g/dL - EKG Data -: EKG Interpreted by Ma EKG Comments: EKG performed at 17:44 sinus rhythm with rate of 93 KS 179 QRS 106 QT/ QTC 330/384 Disposition Clinical Impression: Seizure Disposition: HOME SELF-CARE Condition: Stable Instructions (If sedation given, give patient instructions): Recurrent Seizures in Adults (ED), Seizure/Epilepsy Discharge Instructions & Follow-Up Additional Instructions: Please return to the Emergency Department if symptoms worsen or any other concerns. Is patient prescribed a controlled substance at d/c from ED?: No Referrals: None,Stated [Primary Care Provider] - 1-2 days Time of Disposition: 08:44
[2022-08-05 07:32] VITALS: TEMP 97.9
[2022-08-05] MEDS ORDERED: LORazepam 2 MG/ML INJ IV STA (07:39)
[2022-08-05] MEDS ORDERED: ONDANSETRON 4 MG/2 ML VIAL IVP STA (07:39)
[2022-08-05 08:06] LABS: ALT 27 U/L (4-49); African American GFR (CKD) >90 (>60 ml/min/1.73 sqM); Anion Gap 12 mmol/L; Basophils % (A) 0 %; Blood Urea Nitrogen 18 mg/dL (9-20); Calcium 9.2 mg/dL (8.4-10.2); Carbon Dioxide 18 mmol/L (22-30); Chloride 108 mmol/L (98-107); Eosinophils % (A) 0 %; Glucose 135 mg/dL (74-99); HGB 15.9 gm/dL (13.0-17.5); Lymphocytes # (A) 1.5 k/uL (1.0-4.8); Lymphocytes % (A) 12 %; MCH 29.6 pg (25.0-35.0); MCHC 33.9 g/dL (31.0-37.0); MCV 87.3 fL (80.0-100.0); Mean Platelet Volume 7.3; Monocytes # (A) 0.4 k/uL (0-1.0); Monocytes % (A) 3 %; Neutrophils # (A) 10.2 k/uL (1.3-7.7); Neutrophils % (A) 83 %; Non-African American GFR(CKD) >90 (>60 ml/min/1.73 sqM); Platelet Count 327 k/uL (150-450); RBC 5.39 m/uL (4.30-5.90); RDW 13.4 % (11.5-15.5); Sodium 138 mmol/L (137-145); Total Bilirubin 0.6 mg/dL (0.2-1.3); Total Protein 7.5 g/dL (6.3-8.2); WBC 12.2 k/uL (3.8-10.6)
[2022-08-05 08:15] LABS: AST 28 U/L (17-59); Alkaline Phosphatase 45 U/L (38-126); Magnesium 2.2 mg/dL (1.6-2.3); Potassium 4.8 mmol/L (3.5-5.1)
[2022-08-05 09:02] VITALS: BP 136/88; PULSE 73; RESP 18
== END 2022-08-05 09:39 | disposition home or self-care (01) ==
LOC: EC 07:20
DX: R56.9 Unspecified convulsions (principal); F90.9 Attention-deficit hyperactivity disorder, unspecified type; F41.9 Anxiety disorder, unspecified; F31.9 Bipolar disorder, unspecified; F12.90 Cannabis use, unspecified, uncomplicated; Z91.030 Bee allergy status; Z91.018 Allergy to other foods
CPT/HCPCS: 36415; 93005; 80053; 83735; 85025; 99285; 96374; 96375; 96361; J2060; J2405

== ENCOUNTER 2022-10-07 20:25 | Emergency (ER) | payer OTHER ==
[2022-10-07] MEDS ORDERED: LORazepam 2 MG/ML INJ IV STA (20:53)
[2022-10-07] MEDS ORDERED: SODIUM CHLORIDE 0.9% 1,000 ML IV ONE (20:53)
--- NOTE | 2022-10-07 21:13 | ED ---
Seizure HPI - General Chief Complaint: Seizure Stated Complaint: Seizure Time Seen by Provider: 10/07/22 20:32 Source: patient Mode of arrival: ambulatory Limitations: no limitations - History of Present Illness Initial Comments: 's patient is 27-year-old man who presents to have evaluation after having had seizure at home. The patient states that he has 1-2 seizures a month or every other month. He states that they're usually stress induced. If he is able to control his stress he does not have frequent seizures. The patient states that he does not take anticonvulsants as all of them have caused acceptable side effects to him. Patient states that he has been having increased stress related to his child's mother. Patient states he had a seizure tonight. He does not believe he had any trauma related to the seizure. He believes he is back at his baseline. MD Complaint: seizure -: hour(s) Description of Episode: loss of consciousness, tonic-clonic movement -: second(s) Witnessed: yes - by bystander Trauma: No Seizure History: known seizure disorder Place: home Possible Precipitating Event: stress Associated Symptoms: denies other symptoms Treatments Prior to Arrival: none - Related Data Home Medications Medication Instructions Recorded Confirmed No Known Home Medications 10/07/22 10/07/22 Allergies Allergy/AdvReac Type Severity Reaction Status Date / Time bee venom protein (honey bee) Allergy Anaphylaxis Verified 10/07/22 21:17 citric acid Allergy Unknown Verified 10/07/22 21:17 CITRAMALIC ACID Allergy Redness, Uncoded 10/07/22 21:17 dizzy Review of Systems ROS Statement: Those systems with pertinent positive or pertinent negative responses have been documented in the HPI. ROS Other: All systems not noted in ROS Statement are negative. Constitutional: Denies: fever, chills, weakness Eyes: Denies: vision change Respiratory: Denies: cough, dyspnea Cardiovascular: Denies: chest pain, palpitations, edema Gastrointestinal: Denies: abdominal pain, vomiting, diarrhea Genitourinary: Denies: dysuria, hematuria Musculoskeletal: Denies: back pain Skin: Denies: rash Neurological: Denies: headache, weakness, numbness, confusion Past Medical History Past Medical History: Seizure Disorder History of Any Multi-Drug Resistant Organisms: None Reported Past Surgical History: No Surgical Hx Reported Additional Past Surgical History / Comment(s): wisdom teeth extraction, facial Past Anesthesia/Blood Transfusion Reactions: No Reported Reaction Past Psychological History: ADD/ADHD, Anxiety, Bipolar, Depression Smoking Status: Never smoker Past Alcohol Use History: None Reported Past Drug Use History: Marijuana General Exam Limitations: no limitations General appearance: alert, in no apparent distress Head exam: Present: atraumatic, normocephalic Eye exam: Present: normal appearance. Absent: scleral icterus, conjunctival injection ENT exam: Present: normal oropharynx Neck exam: Present: normal inspection, full ROM. Absent: tenderness, meningismus Respiratory exam: Present: normal lung sounds bilaterally. Absent: respiratory distress, wheezes, rales, rhonchi, stridor, chest wall tenderness Cardiovascular Exam: Present: regular rate, normal rhythm, normal heart sounds. Absent: systolic murmur, diastolic murmur, rubs, gallop GI/Abdominal exam: Present: soft. Absent: distended, tenderness, guarding, rebound, rigid, mass Extremities exam: Present: normal inspection, normal capillary refill. Absent: pedal edema, calf tenderness Back exam: Present: normal inspection. Absent: vertebral tenderness Neurological exam: Present: alert, oriented X3, CN II-XII intact. Absent: motor sensory deficit Skin exam: Present: warm, dry, intact, normal color. Absent: rash Course Vital Signs 10/07/22 10/07/22 10/07/22 20:27 20:45 22:38 Temperature 97.8 F 97.7 F Pulse Rate 101 H 92 82 Respiratory 20 18 16 Rate Blood Pressure 152/96 142/81 122/70 O2 Sat by Pulse 97 98 99 Oximetry Medical Decision Making - Medical Decision Making This patient is 27-year-old man here to have evaluation after having had seizure. The patient has unremarkable workup here. Patient is feeling better and would like to go home. We discussed appropriate further care and follow-up as well as return parameters. Was pt. sent in by a medical professional or institution (, PA, HISTORIAN DRAMATIC ARTS, urgent care, hospital, or half-way...) When possible be specific @ -[No] Did you speak to anyone other than the patient for history (EMS, parent, family, police, friend...)? What history was obtained from this source @ -[No] Did you review nursing and triage notes (agree or disagree)? Why? @ -[I reviewed and agree with nursing and triage notes] Were old charts reviewed (outside hosp., previous admission, EMS record, old EKG, old radiological studies, urgent care reports/EKG's, half-way records)? Report findings @ -[No old charts were reviewed] Differential Diagnosis (chest pain, altered mental status, abdominal pain women, abdominal pain men, vaginal bleeding, weakness, fever, dyspnea, syncope, headache, dizziness, GI bleed, back pain, seizure, CVA, palpatations, mental health, musculoskeletal)? @ -[Differential Seizure: Recurrent seizure disorder, febrile seizure, alcohol withdrawal, stimulants, meningitis, encephalitis, intercranial hemorrhage, intracranial tumor, stroke, eclampsia, thyrotoxicosis, hypocalcemia, hyponatremia, hypernatremia, hypomagnesemia, psychogenic, this is not meant to be an all-inclusive list. EKG interpreted by me (3pts min.). @ -[As above] X-rays interpreted by me (1pt min.). @ -[None done] CT interpreted by me (1pt min.). @ -[None done] U/S interpreted by me (1pt. min.). @ -[None done] What testing was considered but not performed or refused? (CT, X-rays, U/S, labs)? Why? @ -[None] What meds were considered but not given or refused? Why? @ -[None] Did you discuss the management of the patient with other professionals (professionals i.e. , PA, HISTORIAN DRAMATIC ARTS, lab, RT, psych nurse, pediatric social worker, hurricane tracker, teacher, worldwide chief creative officer, case management coordinator)? Give summary @ -[No] Was smoking cessation discussed for >3mins.? @ -[No] Was critical care preformed (if so, how long)? @ -[No] Were there social determinants of health that impacted care today? How? (Homelessness, low income, unemployed, alcoholism, drug addiction, transportation, low edu. Level, literacy, decrease access to med. care, snf, rehab)? @ -[No] Was there de-escalation of care discussed even if they declined (Discuss DNR or withdrawal of care, Hospice)? DNR status @ -[No] What co-morbidities impacted this encounter? (DM, HTN, Smoking, COPD, CAD, Can cer, CVA, ARF, Chemo, Hep., AIDS, mental health diagnosis, sleep apnea, morbid obesity)? @ -[None] Was patient admitted / discharged? Hospital course, mention meds given and route, prescriptions, significant lab abnormalities, going to OR and other pertinent info. @ -[Discharged Undiagnosed new problem with uncertain prognosis? @ -[No] Drug Therapy requiring intensive monitoring for toxicity (Heparin, Nitro, Insulin, Cardizem)? @ -[No] Were any procedures done? @ -[No] Diagnosis/symptom? @ -[Acute generalized tonic-clonic seizure Acute, or Chronic, or Acute on Chronic? @ -[aCute Uncomplicated (without systemic symptoms) or Complicated (systemic symptoms)? @ -[Uncomplicated Side effects of treatment? @ -[No] Exacerbation, Progression, or Severe Exacerbation? @ -[No] Poses a threat to life or bodily function? How? (Chest pain, USA, MT, pneumonia, PE, COPD, DKA, ARF, appy, cholecystitis, CVA, Diverticulitis, Homicidal, Suicidal, threat to staff... and all critical care pts) @ -[No] - Lab Data Result diagrams: 10/07/22 21:04 10/07/22 21:04 Lab Results 10/07/22 10/07/22 Range/Units 21:04 21:04 WBC 8.4 (3.8-10.6) k/uL RBC 4.93 (4.30-5.90) m/uL Hgb 14.4 (13.0-17.5) gm/dL Hct 42.7 (39.0-53.0) % MCV 86.6 (80.0-100.0) fL MCH 29.1 (25.0-35.0) pg MCHC 33.6 (31.0-37.0) g/dL RDW 12.9 (11.5-15.5) % Plt Count 230 (150-450) k/uL MPV 6.8 Neutrophils % 44 % Lymphocytes % 45 % Monocytes % 6 % Eosinophils % 3 % Basophils % 1 % Neutrophils # 3.7 (1.3-7.7) k/uL Lymphocytes # 3.8 (1.0-4.8) k/uL Monocytes # 0.5 (0-1.0) k/uL Eosinophils # 0.2 (0-0.7) k/uL Basophils # 0.1 (0-0.2) k/uL Sodium 139 (137-145) mmol/L Potassium 4.1 (3.5-5.1) mmol/L Chloride 105 (98-107) mmol/L Carbon Dioxide 25 (22-30) mmol/L Anion Gap 9 mmol/L BUN 24 H (9-20) mg/dL Creatinine 0.97 (0.66-1.25) mg/dL Est GFR (CKD-EPI)AfAm >90 (>60 ml/min/1.73 sqM) Est GFR (CKD-EPI)NonAf >90 (>60 ml/min/1.73 sqM) Glucose 104 H (74-99) mg/dL Calcium 9.4 (8.4-10.2) mg/dL Magnesium 2.2 (1.6-2.3) mg/dL Total Bilirubin 0.4 (0.2-1.3) mg/dL AST 29 (17-59) U/L ALT 34 (4-49) U/L Alkaline Phosphatase 52 (38-126) U/L Total Protein 6.8 (6.3-8.2) g/dL Albumin 4.5 (3.5-5.0) g/dL - EKG Data -: EKG Interpreted by Md EKG shows normal: sinus rhythm, axis (Borderline right axis deviation), intervals (NC interval 202 ms, borderline, QRS duration 118 ms, borderline, QTC 389 ms, normal.), QRS complexes (Nonspecific intraventricular conduction delay.), ST-T waves (Normal) Rate: normal (Rate 84 bpm) Disposition Clinical Impression: Generalized seizure Disposition: HOME SELF-CARE Instructions (If sedation given, give patient instructions): Seizure/Epilepsy Discharge Instructions & Follow-Up, Recurrent Seizures in Adults (ED) Is patient prescribed a controlled substance at d/c from ED?: No Referrals: None,Stated [Primary Care Provider] - 1-2 days
[2022-10-07 21:25] LABS: ALT 34 U/L (4-49); AST 29 U/L (17-59); African American GFR (CKD) >90 (>60 ml/min/1.73 sqM); Albumin 4.5 g/dL (3.5-5.0); Alkaline Phosphatase 52 U/L (38-126); Basophils # (A) 0.1 k/uL (0-0.2); Basophils % (A) 1 %; Blood Urea Nitrogen 24 mg/dL (9-20); Calcium 9.4 mg/dL (8.4-10.2); Carbon Dioxide 25 mmol/L (22-30); Chloride 105 mmol/L (98-107); Eosinophils # (A) 0.2 k/uL (0-0.7); Eosinophils % (A) 3 %; Glucose 104 mg/dL (74-99); HCT 42.7 % (39.0-53.0); HGB 14.4 gm/dL (13.0-17.5); Lymphocytes # (A) 3.8 k/uL (1.0-4.8); Lymphocytes % (A) 45 %; MCH 29.1 pg (25.0-35.0); MCHC 33.6 g/dL (31.0-37.0); MCV 86.6 fL (80.0-100.0); Magnesium 2.2 mg/dL (1.6-2.3); Mean Platelet Volume 6.8; Monocytes # (A) 0.5 k/uL (0-1.0); Monocytes % (A) 6 %; Neutrophils # (A) 3.7 k/uL (1.3-7.7); Neutrophils % (A) 44 %; Non-African American GFR(CKD) >90 (>60 ml/min/1.73 sqM); Platelet Count 230 k/uL (150-450); RBC 4.93 m/uL (4.30-5.90); RDW 12.9 % (11.5-15.5); Total Bilirubin 0.4 mg/dL (0.2-1.3); Total Protein 6.8 g/dL (6.3-8.2); WBC 8.4 k/uL (3.8-10.6)
[2022-10-07 21:37] LABS: Anion Gap 9 mmol/L; Potassium 4.1 mmol/L (3.5-5.1); Sodium 139 mmol/L (137-145)
[2022-10-07 22:40] VITALS: BP 122/70; PULSE 82; RESP 16; TEMP 97.7
== END 2022-10-07 22:30 | disposition home or self-care (01) ==
LOC: EC 20:25
DX: G40.909 Epilepsy, unspecified, not intractable, without status epilepticus (principal); F12.90 Cannabis use, unspecified, uncomplicated; Z91.030 Bee allergy status; Z91.018 Allergy to other foods
CPT/HCPCS: 36415; 93005; 80053; 83735; 85025; 99284; 96374; 96361; J2060

== ENCOUNTER 2022-10-20 20:26 | Emergency (ER) | payer OTHER ==
[2022-10-20 20:31] VITALS: BP 142/86; PULSE 99; RESP 20; TEMP 98.5
--- NOTE | 2022-10-20 22:09 | ED ---
General Adult HPI - General Chief complaint: Psychiatric Symptoms Stated complaint: Mental Health Time Seen by Provider: 10/20/22 21:10 Source: patient Mode of arrival: ambulatory Limitations: no limitations - History of Present Illness Initial comments: Patient is a 27-year-old male with past medical history remarkable for stress- induced seizures, chronic suicidal ideation as well as anxiety presents emergency Department after being petitioned by his ex- over concern for suicidal ideation. Patient states on a daily basis endorse suicidal ideations which usually resolve with walking or when smoking marijuana. He states that his ex- has also been stressing him out lately and states she is getting on him over different things working out the relationship with his daughter. Patient understands he is petitioned and requires psychiatric evaluation. Denies any homicidal ideations, attempts, plans. Denies any current suicidal ideations, attempts, plans. Per petition, patient does have a history of an attempt with tying a belt around his neck. Denies any visual or auditory hallucinations. He presents for further evaluation at this time. Does not take any medications for his epilepsy. States he does have therapists which he states to help with his mental health. - Related Data Home Medications Medication Instructions Recorded Confirmed No Known Home Medications 10/07/22 10/20/22 Allergies Allergy/AdvReac Type Severity Reaction Status Date / Time bee venom protein (honey bee) Allergy Anaphylaxis Verified 10/20/22 21:01 citric acid Allergy Unknown Verified 10/20/22 21:01 CITRAMALIC ACID Allergy Redness, Uncoded 10/20/22 21:01 dizzy Review of Systems ROS Statement: Those systems with pertinent positive or pertinent negative responses have been documented in the HPI. Review of Systems: CONST: Denies fever EYES: Denies blurry vision ENT: Denies nasal congestion C/V: Denies Chest pain RESP: Denies shortness of breath GI: Denies abdominal pain : Denies dysuria SKIN: Denies rash. MSK: Denies joint pain. NEURO: Denies headache PSYCH: Denies suicidal and homicidal ideations/plans/attempts. Denies visual or auditory hallucinations. ROS Other: All systems not noted in ROS Statement are negative. Past Medical History Past Medical History: Seizure Disorder History of Any Multi-Drug Resistant Organisms: None Reported Past Surgical History: No Surgical Hx Reported Additional Past Surgical History / Comment(s): wisdom teeth extraction, facial Past Anesthesia/Blood Transfusion Reactions: No Reported Reaction Past Psychological History: ADD/ADHD, Anxiety, Bipolar, Depression Smoking Status: Never smoker Past Alcohol Use History: None Reported Past Drug Use History: Marijuana General Exam - General Exam Comments Initial Comments: General: Appears in no acute distress. HEAD: Normal with no signs of head trauma. EYES: PERRLA, EOMI, conjunctiva normal, no discharge. Pupils 3 mm equal bilaterally. ENT: Hearing grossly intact, normal oropharynx. RESPIRATORY: Clear breath sounds bilaterally. C/V: Regular rate and rhythm. S1 and S2 auscultated, peripheral pulses 2+ and intact throughout ABD: Abd is soft, nontender, nondistended EXT: Normal range of motion, no obvious deformity SKIN: No rashes or lesions observed on exposed skin. NEURO: Alert and oriented 4. Limitations: no limitations Course Vital Signs 10/20/22 20:28 Temperature 98.5 F Pulse Rate 99 Respiratory 20 Rate Blood Pressure 142/86 O2 Sat by Pulse 97 Oximetry Medical Decision Making - Medical Decision Making Was pt. sent in by a medical professional or institution (, PA, SENIOR RESEARCH EXECUTIVE, urgent care, hospital, or custodial...) When possible be specific @ -Brought in by police for a petition for suicidal ideations. Petitioned by his ex Did you speak to anyone other than the patient for history (EMS, parent, family, police, friend...)? What history was obtained from this source @ -No Did you review nursing and triage notes (agree or disagree)? Why? @ -I reviewed and agree with nursing and triage notes Were old charts reviewed (outside hosp., previous admission, EMS record, old EKG, old radiological studies, urgent care reports/EKG's, custodial records)? Report findings @ -Reviewed the patient's petition. Differential Diagnosis (chest pain, altered mental status, abdominal pain women, abdominal pain men, vaginal bleeding, weakness, fever, dyspnea, syncope, headache, dizziness, GI bleed, back pain, seizure, CVA, palpatations, mental health, musculoskeletal)? @ -Differential Mental Health Depression, anxiety, bipolar, psychosis, schizophrenia, borderline personality, situational depression, adjustment disorder, behavioral disorder, brain tumor, malingering, substance abuse, encephalopathy, medication reaction, dementia, hypothyroidism, degenerative neurologic disorder, lupus.... This is not meant to be all-inclusive list EKG interpreted by me (3pts min.). @ -None done X-rays interpreted by me (1pt min.). @ -None done CT interpreted by me (1pt min.). @ -None done U/S interpreted by me (1pt. min.). @ -None done What testing was considered but not performed or refused? (CT, X-rays, U/S, labs)? Why? @ -None What meds were considered but not given or refused? Why? @ -None Did you discuss the management of the patient with other professionals (professionals i.e. , PA, SENIOR RESEARCH EXECUTIVE, lab, RT, psych nurse, case management social worker, vice chair, teacher, co founder and chief strategy officer, case mgr)? Give summary @ -No Was smoking cessation discussed for >3mins.? @ -No Was critical care preformed (if so, how long)? @ -No Were there social determinants of health that impacted care today? How? (Homelessness, low income, unemployed, alcoholism, drug addiction, transportation, low edu. Level, literacy, decrease access to med. care, residential, rehab)? @ -No Was there de-escalation of care discussed even if they declined (Discuss DNR or withdrawal of care, Hospice)? DNR status @ -No What co-morbidities impacted this encounter? (DM, HTN, Smoking, COPD, CAD, Cancer, CVA, ARF, Chemo, Hep., AIDS, mental health diagnosis, sleep apnea, morbid obesity)? @ -None Was patient admitted / discharged? Hospital course, mention meds given and route, prescriptions, significant lab abnormalities, going to OR and other pertinent info. @ -Based on the patient's presentation and physical exam, I believe he does require psychiatric evaluation. He was placed in green scrubs. Sitter order was ordered. Suicide precautions ordered. BAT is 0. UDS is pending. Vital signs within acceptable limits. No acute complaints. Patient is medically cleared for evaluation by psychiatry. Disposition is pending psychiatric evaluation. EPS is notified. EPS evaluated the patient. Patient does not meet inpatient criteria for psychiatric admission. Will be discharged home with a safety plan. Patient agreement this plan. Undiagnosed new problem with uncertain prognosis? @ -No Drug Therapy requiring intensive monitoring for toxicity (Heparin, Nitro, Insulin, Cardizem)? @ -No Were any procedures done? @ -No Diagnosis/symptom? @ -Encounter For psychiatric evaluation, suicidal ideations Acute, or Chronic, or Acute on Chronic? @ -Acute Uncomplicated (without systemic symptoms) or Complicated (systemic symptoms)? @ -Uncomplicated Side effects of treatment? @ -No Exacerbation, Progression, or Severe Exacerbation? @ -No Poses a threat to life or bodily function? How? (Chest pain, USA, MT, pneumonia, PE, COPD, DKA, ARF, appy, cholecystitis, CVA, Diverticulitis, Homicidal, Suicidal, threat to staff... and all critical care pts) @ -Yes, patient has history of suicidal ideations and petition states he is suicidal and therefore is a threat to self. - Lab Data Lab Results 10/20/22 Range/Units 21:29 Urine Opiates Screen Not Detected (NotDetected) Ur Oxycodone Screen Not Detected (NotDetected) Urine Methadone Screen Not Detected (NotDetected) Ur Propoxyphene Screen Not Detected (NotDetected) Ur Barbiturates Screen Not Detected (NotDetected) U Tricyclic Antidepress Not Detected (NotDetected) Ur Phencyclidine Scrn Not Detected (NotDetected) Ur Amphetamines Screen Not Detected (NotDetected) U Methamphetamines Scrn Not Detected (NotDetected) U Benzodiazepines Scrn Not Detected (NotDetected) Urine Cocaine Screen Not Detected (NotDetected) U Marijuana (THC) Screen Detected H (NotDetected) Disposition Clinical Impression: Encounter for psychiatric assessment, Suicidal ideation Disposition: HOME SELF-CARE Condition: Good Additional Instructions: Follow safety plan provided. Is patient prescribed a controlled substance at d/c from ED?: No Referrals: None,Stated [Primary Care Provider] - 1-2 days Time of Disposition: 01:15
[2022-10-20 22:29] LABS: Amphetamine Screen,Urine Not Detected (NotDetected); Barbiturate Screen,Urine Not Detected (NotDetected); Benzodiazepines Screen,Urine Not Detected (NotDetected); Cocaine Screen,Urine Not Detected (NotDetected); Methadone Screen, Urine Not Detected (NotDetected); Opiate Screen,Urine Not Detected (NotDetected); Oxycodone Screen, Urine Not Detected (NotDetected); Phencyclidine Screen,Urine Not Detected (NotDetected); Tricyclic Antidepressant,Urine Not Detected (NotDetected); Urn Cannabinoid Scrn Detected (NotDetected)
== END 2022-10-21 01:35 | disposition home or self-care (01) ==
LOC: EC 20:26
DX: Z04.6 Encounter for general psychiatric examination, requested by authority (principal); R45.851 Suicidal ideations; Z91.030 Bee allergy status; Z91.018 Allergy to other foods
CPT/HCPCS: 80306; 82075; 99285

== ENCOUNTER 2023-07-27 12:40 | Emergency (ER) | payer OTHER ==
[2023-07-27 13:01] VITALS: BP 149/73; PULSE 94; RESP 16; TEMP 97.7
--- NOTE | 2023-07-27 13:22 | ED ---
Seizure HPI - General Chief Complaint: Seizure Stated Complaint: Seizure Time Seen by Provider: 07/27/23 12:43 Source: patient, RN notes reviewed, old records reviewed Mode of arrival: EMS Limitations: no limitations - History of Present Illness Initial Comments: This is a 28-year-old male to the ER for evaluation of significant stress event. Patient states he was under some stress today with his girlfriend and girlfriend's son. This stress caused him what he believes to have a seizure. Patient has history of seizures does not take current seizure therapy or treatment is not on medications and does not want to be on medications. Patient has no travel history no sick contacts no other complaints no current headache and states currently feeling well MD Complaint: seizure -: minutes(s) Description of Episode: loss of consciousness, tonic-clonic movement -: second(s) Witnessed: yes - by bystander Trauma: Yes Seizure History: known seizure disorder Place: home Possible Precipitating Event: none Associated Symptoms: denies other symptoms Treatments Prior to Arrival: none - Related Data Home Medications Medication Instructions Recorded Confirmed No Known Home Medications 10/07/22 07/27/23 Allergies Allergy/AdvReac Type Severity Reaction Status Date / Time bee venom protein (honey bee) Allergy Anaphylaxis Verified 07/27/23 13:26 citric acid Allergy Unknown Verified 07/27/23 13:26 divalproex sodium AdvReac induced Verified 07/27/23 13:26 [From Depakote] seizures levetiracetam [From Keppra] AdvReac rage Verified 07/27/23 13:26 CITRAMALIC ACID Allergy Redness, Uncoded 07/27/23 12:58 dizzy Review of Systems ROS Statement: Those systems with pertinent positive or pertinent negative responses have been documented in the HPI. ROS Other: All systems not noted in ROS Statement are negative. Past Medical History Past Medical History: Seizure Disorder History of Any Multi-Drug Resistant Organisms: None Reported Past Surgical History: No Surgical Hx Reported Additional Past Surgical History / Comment(s): wisdom teeth extraction, facial Past Anesthesia/Blood Transfusion Reactions: No Reported Reaction Past Psychological History: ADD/ADHD, Anxiety, Bipolar, Depression Smoking Status: Never smoker Past Alcohol Use History: None Reported Past Drug Use History: Marijuana General Exam Limitations: no limitations General appearance: alert, in no apparent distress Head exam: Present: atraumatic, normocephalic, normal inspection Eye exam: Present: normal appearance, PERRL, EOMI. Absent: scleral icterus, conjunctival injection, periorbital swelling ENT exam: Present: normal exam, mucous membranes moist Neck exam: Present: normal inspection. Absent: tenderness, meningismus, lymphadenopathy Respiratory exam: Present: normal lung sounds bilaterally. Absent: respiratory distress, wheezes, rales, rhonchi, stridor Cardiovascular Exam: Present: regular rate, normal rhythm, normal heart sounds. Absent: systolic murmur, diastolic murmur, rubs, gallop, clicks GI/Abdominal exam: Present: soft, normal bowel sounds. Absent: distended, tenderness, guarding, rebound, rigid Extremities exam: Present: normal inspection, full ROM, normal capillary refill. Absent: tenderness, pedal edema, joint swelling, calf tenderness Back exam: Present: normal inspection Neurological exam: Present: alert, oriented X3, CN II-XII intact Psychiatric exam: Present: normal affect, normal mood Skin exam: Present: warm, dry, intact, normal color. Absent: rash Course Vital Signs 07/27/23 12:52 Temperature 97.7 F Pulse Rate 94 Respiratory 16 Rate Blood Pressure 149/73 O2 Sat by Pulse 95 Oximetry - Reevaluation(s) Reevaluation #1: Medical records reviewed Reevaluation #2: Patient symptoms improved Reevaluation #3: Patient informed of results questions answered Reevaluation #4: Was pt. sent in by a medical professional or institution (, PA, ENGINEERING TECHNICAL SPECIALIST, urgent care, hospital, or alf...) When possible be specific @ -no Did you speak to anyone other than the patient for history (EMS, parent, family, police, friend...)? What history was obtained from this source @ -no Did you review nursing and triage notes (agree or disagree)? Why? @ -agree Are old charts reviewed (outside hosp., previous admission, EMS record, old EKG, old radiological studies, urgent care reports/EKG's, alf records)? Re port findings @ -yes Differential Diagnosis (chest pain, altered mental status, abdominal pain women, abdominal pain men, vaginal bleeding, weakness, fever, dyspnea, syncope, headache, dizziness, GI bleed, back pain, seizure, CVA, palpatations, mental health, musculoskeletal)? @ -prior EKG interpreted by me (3pts min.). @ -no X-rays interpreted by me (1pt min.). @ -no CT interpreted by me (1pt min.). @ -no U/S interpreted by me (1pt. min.). @ -no What testing was considered but not performed or refused? (CT, X-rays, U/S, labs)? Why? @ -none What meds were considered but not given or refused? Why? @ -none Did you discuss the management of the patient with other professionals (professionals i.e. , PA, ENGINEERING TECHNICAL SPECIALIST, lab, RT, psych nurse, social human services assistants, patrol mother, teacher, parole hearing officer, outpatient case manager)? Give summary @ -no Was smoking cessation discussed for >3mins.? @ -no Was critical care preformed (if so, how long)? @ -no Were there social determinants of health that impacted care today? How? (Homelessness, low income, unemployed, alcoholism, drug addiction, transportation, low edu. Level, literacy, decrease access to med. care, intermediate, rehab)? @ -none Was there de-escalation of care discussed even if they declined (Discuss DNR or withdrawal of care, Hospice)? DNR status @ -no What co-morbidities impacted this encounter? (DM, HTN, Smoking, COPD, CAD, Cancer, CVA, ARF, Chemo, Hep., AIDS, mental health diagnosis, sleep apnea, morbid obesity)? @ -none Was patient admitted / discharged? Hospital course, mention meds given and route, prescriptions, significant lab abnormalities, going to OR and other pertinent info. @ - 28 male to the ER for evaluation of recurrent seizures history of seizure. Patient currently started on antiseizure medication states he is significantly stressed out believes that leads to his seizure today and has no complaints. Patient can be discharged home Undiagnosed new problem with uncertain prognosis? @ -no Drug Therapy requiring intensive monitoring for toxicity (Heparin, Nitro, Insulin, Cardizem)? @ -no Were any procedures done? @ -no Diagnosis/symptom? @ -Recurrent seizure Acute, or Chronic, or Acute on Chronic? @ -Acute Uncomplicated (without systemic symptoms) or Complicated (systemic symptoms)? @ -Complicated Side effects of treatment? @ -no Exacerbation, Progression, or Severe Exacerbation? @ -exacerbation Poses a threat to life or bodily function? How? (Chest pain, [place], [place], pneumonia, PE, COPD, DKA, ARF, appy, cholecystitis, CVA, Diverticulitis, Homicidal, Suicidal, threat to staff... and all critical care pts) @ -yes with recurrent seizures and status epilepticus Reevaluation #5: Differential Seizure: Recurrent seizure disorder, febrile seizure, alcohol withdrawal, stimulants, meningitis, encephalitis, intercranial hemorrhage, intracranial tumor, stroke, eclampsia, thyrotoxicosis, hypocalcemia, hyponatremia, hypernatremia, hypomagnesemia, psychogenic, this is not meant to be an all-inclusive list. Medical Decision Making - Medical Decision Making 28 male to the ER for evaluation of recurrent seizures history of seizure. Patient currently started on antiseizure medication states he is significantly stressed out believes that leads to his seizure today and has no complaints. Patient can be discharged home Disposition Clinical Impression: Epileptic seizure, generalized Disposition: HOME SELF-CARE Condition: Fair Instructions (If sedation given, give patient instructions): Seizure/Epilepsy Discharge Instructions & Follow-Up, Recurrent Seizures in Adults (ED) Is patient prescribed a controlled substance at d/c from ED?: No Referrals: None,Stated [Primary Care Provider] - 1-2 days Time of Disposition: 13:30
== END 2023-07-27 14:30 | disposition home or self-care (01) ==
LOC: EC 12:40
DX: G40.409 Other generalized epilepsy and epileptic syndromes, not intractable, without status epilepticus (principal); F12.90 Cannabis use, unspecified, uncomplicated; Z88.8 Allergy status to other drugs, medicaments and biological substances; Z91.030 Bee allergy status
CPT/HCPCS: 99284

== ENCOUNTER → 2024-05-16 | Day surgery (SDC) | payer OTHER ==
[~2024-05-16] MED LIST: ACETAMINOPHEN TAB 500 MG TAB PO PRN; HEPARIN SODIUM,PORCINE 5,000 UNIT/ML 1 ML VIAL SQ PRN; HYDROmorphone 0.5 MG/0.5 ML SYRINGE IVP PRN; LACTATED RINGERS 1,000 ML IV SCH; LIDOCAINE 1% (10MG/ML) FOR IV START INTRADERMA PRN; ONDANSETRON 4 MG/2 ML VIAL IVP ONE; ONDANSETRON 4 MG/2 ML VIAL IVP PRN; ceFAZolin 3 GM in SODIUM CHLORIDE 0.9% 100 ML IVPB PRN; metroNIDAZOLE-NS PMX 500 MG in SALINE 1 100ML.BAG IVPB PRN
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
[2024-05-16] MEDS: IV FLUID CONTINUATION 1,000 ML IV ONE (12:36)
[2024-05-16 13:07] VITALS: BP 146/81; PULSE 68; RESP 16; TEMP 98
[2024-05-16 13:10] LABS: Basophils # (A) 0.1 k/uL (0-0.2); Basophils % (A) 1 %; Eosinophils # (A) 0.2 k/uL (0-0.7); Eosinophils % (A) 2 %; HCT 46.5 % (39.0-53.0); HGB 15.5 gm/dL (13.0-17.5); Lymphocytes # (A) 2.6 k/uL (1.0-4.8); Lymphocytes % (A) 37 %; MCH 28.9 pg (25.0-35.0); MCHC 33.3 g/dL (31.0-37.0); MCV 86.9 fL (80.0-100.0); Mean Platelet Volume 6.4; Monocytes # (A) 0.4 k/uL (0-1.0); Monocytes % (A) 6 %; Neutrophils # (A) 3.8 k/uL (1.3-7.7); Neutrophils % (A) 54 %; Platelet Count 317 k/uL (150-450); RBC 5.35 m/uL (4.30-5.90); RDW 13.1 % (11.5-15.5); WBC 7.1 k/uL (3.8-10.6)
[2024-05-16 13:27] LABS: ALT 32 U/L (4-49); AST 24 U/L (17-59); African American GFR (CKD) >90 (>60 ml/min/1.73 sqM); Alkaline Phosphatase 80 U/L (38-126); Anion Gap 11 mmol/L; Blood Urea Nitrogen 17 mg/dL (9-20); Calcium 9.5 mg/dL (8.4-10.2); Carbon Dioxide 21 mmol/L (22-30); Chloride 107 mmol/L (98-107); Glucose 85 mg/dL (74-99); Non-African American GFR(CKD) 89 (>60 ml/min/1.73 sqM); Potassium 4.6 mmol/L (3.5-5.1); Sodium 139 mmol/L (137-145); Total Bilirubin 0.4 mg/dL (0.2-1.3); Total Protein 7.3 g/dL (6.3-8.2)
--- NOTE | 2024-05-16 14:05 | P.PN ---
Progress Note - Text Progress Note Date: 05/16/24 Notified by preop and anesthesiologist, patient left preoperative area due to severe anxiety.
--- NOTE | 2024-05-16 14:08 | P.PN ---
Progress Note - Text Progress Note Date: 05/16/24 Patient contacted the office to get additional antibiotics. Patient has been on 2 different type of antibiotics without improvement. Due to patient's multiple allergies and current medications, I spoke to his and recommended a follow- up with a primary care provider with referral to an infectious disease specialist for antibiotic management as the patient does not want any further surgical intervention.
== END ==
LOC: OR 12:08
PROVIDERS: ATTEND Surgery Plastic and Reconstructive Surgery
DX: L05.91 Pilonidal cyst without abscess (principal); F41.9 Anxiety disorder, unspecified; I10 Essential (primary) hypertension; K21.9 Gastro-esophageal reflux disease without esophagitis; F17.200 Nicotine dependence, unspecified, uncomplicated; Z91.030 Bee allergy status; Z53.29 Procedure and treatment not carried out because of patient's decision for other reasons
CPT/HCPCS: 80053; 85025